=== PATIENT | female | born 1935 | race Caucasian/White ===

== ENCOUNTER 2018-06-26 08:57 | Emergency (ER) | payer MEDICARE ==
[~2018-06-26] VITALS: Ht 154.9 cm; Wt 45.5 kg
[2018-06-26 09:24] VITALS: Ht 154.9 cm; Wt 45.5 kg
[2018-06-26 09:55] LABS: BASOPHILS 0.5 % (0-2); EOSINOPHILS 2.6 % (0-7); HEMATOCRIT 34.5 % (36.0-48.0); HEMOGLOBIN 11.5 g/dL (12-16); IMMATURE GRANULOCYTES 0.3 % (0-5); LYMPHOCYTES 24.8 % (15-50); MCH 28.8 pg (26.0-34.0); MCHC 33.3 g/dL (31.0-37.0); MCV 86.3 fL (80.0-100.0); MEAN PLATELET VOLUME 9.1 fL (7.4-10.4); NEUTROPHILS 63.8 % (40-80); PLATELET COUNT 194 10x3/uL (130-400); RDW 13.1 % (11.5-14.5); WBC 3.9 10x3/uL (4.8-10.8)
[2018-06-26 10:05] LABS: APTT 30.1 SECONDS (22.8-39.4); INR 1.01 (0.85-1.17); PROTIME 12.9 SECONDS (11.6-15.0)
[2018-06-26 10:06] LABS: D-DIMER-QUANTITATIVE 0.49 ug/mLFEU (0.20-0.54)
[2018-06-26 10:09] LABS: ALBUMIN 3.1 g/dL (3.4-5.0); ANION GAP 11.8 mmol/L (8-16); BILIRUBIN - TOTAL 0.33 mg/dL (0.2-1.3); CALCIUM 8.5 mg/dL (8.5-10.1); CARBON DIOXIDE 26.5 mmol/L (21.0-32.0); CREATININE - SERUM 0.8 mg/dL (0.6-1.3); POTASSIUM - SERUM 4.3 mmol/L (3.5-5.1); PROTEIN - SERUM 6.3 g/dL (6.4-8.2)
[2018-06-26 12:25] LABS: CKMB 0.6 U/L (0.0-3.6); CREATINE KINASE 64 UL (21-215)
[2018-06-26 12:26] LABS: TROPONIN-I < 0.017 ng/mL (0.000-0.060)
[2018-06-26 16:10] LABS: APPEARANCE CLEAR (CLEAR); BILIRUBIN NEGATIVE (NEGATIVE); COLOR YELLOW (YELLOW); GLUCOSE NEGATIVE (NEGATIVE); KETONE NEGATIVE (NEGATIVE); NITRITE NEGATIVE (NEGATIVE); PROTEIN NEGATIVE (NEGATIVE); SPECIFIC GRAVITY 1.015 (1.005-1.020); UROBILINOGEN NORMAL (NORMAL)
[2018-06-26 16:11] LABS: RED CELLS - URINE 0-5 /hpf (0-5); WHITE CELLS - URINE 0-5 /hpf (0-5)
[2018-06-26 16:12] LABS: BACTERIA FEW /hpf (NONE SEEN); EPITHELIAL CELLS 0-5 /hpf (0-5)
[2018-06-26] MEDS ORDERED: KEFLEX500 MG PO (16:20)
[2018-06-26] MEDS ORDERED: MACROBID100 MG PO (16:20)
[2018-06-26 16:40] VITALS: BP 142/73
== END 2018-06-26 16:46 | disposition home or self-care (01) ==
LOC: EDBD 08:57 → D.ER 08:57
PROVIDERS: Family Medicine
DX: N39.0 Urinary tract infection, site not specified (principal); R00.1 Bradycardia, unspecified; R07.9 Chest pain, unspecified

== ENCOUNTER 2018-08-10 13:09 | Emergency (ER) | payer MEDICARE ==
[~2018-08-10] VITALS: Ht 154.9 cm; Wt 59.1 kg
[2018-08-10 13:09] VITALS: Ht 154.9 cm; Wt 59.1 kg
[~2018-08-10 13:09] MED LIST: KEFLEX500 MG PO; MACROBID100 MG PO
[2018-08-10] MEDS ORDERED: MELATONIN5 MG PO (13:17)
[2018-08-10] MEDS ORDERED: ZOFRAN4 MG PO (13:18)
[2018-08-10] MEDS ORDERED: REMERON15 MG PO (13:18)
[2018-08-10] MEDS ORDERED: TIROSINT88 MCG PO (13:18)
[2018-08-10] MEDS ORDERED: OMEPRAZOLE20 M1 (13:19)
[2018-08-10] MEDS ORDERED: BAYER CHEWABLE81 MG PO (13:19)
[2018-08-10] MEDS ORDERED: NORVASC2.5 MG (13:19)
[2018-08-10] MEDS ORDERED: FOLIC ACID0.8 MG (13:20)
[2018-08-10] MEDS ORDERED: ACETAMINOPHEN325 MG PO (13:20)
[2018-08-10] MEDS ORDERED: ZOLOFT100 MG (13:21)
[2018-08-10] MEDS ORDERED: CALCIUM 600 +1 EAC3 (13:21)
[2018-08-10] MEDS ORDERED: KLONOPIN0.5 MG (13:21)
[2018-08-10 13:59] LABS: BASOPHILS 0.4 % (0-2); EOSINOPHILS 2.6 % (0-7); HEMATOCRIT 34.5 % (36.0-48.0); HEMOGLOBIN 11.5 g/dL (12-16); IMMATURE GRANULOCYTES 0.2 % (0-5); LYMPHOCYTES 37.6 % (15-50); MCH 28.8 pg (26.0-34.0); MCHC 33.3 g/dL (31.0-37.0); MCV 86.5 fL (80.0-100.0); MONOCYTES 6.4 % (2-11); NEUTROPHILS 52.8 % (40-80); PLATELET COUNT 205 10x3/uL (130-400); RBC 3.99 10x6/uL (4.00-5.40); RDW 13.2 % (11.5-14.5); WBC 4.7 10x3/uL (4.8-10.8)
[2018-08-10 14:12] LABS: INR 1.07 (0.85-1.17); PROTIME 13.5 SECONDS (11.6-15.0)
[2018-08-10 14:13] LABS: D-DIMER-QUANTITATIVE 0.38 ug/mLFEU (0.20-0.54)
[2018-08-10 14:15] LABS: ALBUMIN 3.3 g/dL (3.4-5.0); ALKALINE PHOSPHATASE 48 U/L (46-116); ALT (SGPT) 17 U/L (10-68); BILIRUBIN - TOTAL 0.34 mg/dL (0.2-1.3); CALC OSMOLALITY 288 mosm/kg (275-300); CALCIUM 9.1 mg/dL (8.5-10.1); CARBON DIOXIDE 26.2 mmol/L (21.0-32.0); CHLORIDE - SERUM 108 mmol/L (98-107); CREATININE - SERUM 0.9 mg/dL (0.6-1.3); GLUCOSE 90 mg/dL (74-106); POTASSIUM - SERUM 4.2 mmol/L (3.5-5.1); PROTEIN - SERUM 6.3 g/dL (6.4-8.2); SODIUM 143 mmol/L (136-145); UREA NITROGEN 24 mg/dL (7-18); eGFR NON AFRICAN AMERICAN 63 mL/min (90-120)
[2018-08-10 14:26] LABS: CKMB 1.3 U/L (0.0-3.6); CREATINE KINASE 56 UL (21-215); MAGNESIUM - SERUM 2.3 mg/dL (1.8-2.4); TROPONIN-I < 0.017 ng/mL (0.000-0.060)
[2018-08-10 15:14] LABS: APPEARANCE CLEAR (CLEAR); BILIRUBIN NEGATIVE (NEGATIVE); COLOR YELLOW (YELLOW); GLUCOSE NEGATIVE (NEGATIVE); KETONE NEGATIVE (NEGATIVE); NITRITE NEGATIVE (NEGATIVE); PROTEIN NEGATIVE (NEGATIVE); SPECIFIC GRAVITY 1.015 (1.005-1.020); UROBILINOGEN NORMAL (NORMAL)
[2018-08-10 15:31] LABS: UDS - AMPHET NEGATIVE QUAL (NEGATIVE); UDS - BARB NEGATIVE QUAL (NEGATIVE); UDS - BENZO NEGATIVE QUAL (NEGATIVE); UDS - COCAINE NEGATIVE QUAL (NEGATIVE); UDS - OPIATE NEGATIVE QUAL (NEGATIVE); UDS - PCP NEGATIVE QUAL (NEGATIVE); UDS - THC NEGATIVE QUAL (NEGATIVE)
[2018-08-10 20:07] VITALS: BP 144/50
== END 2018-08-10 19:15 | disposition home or self-care (01) ==
LOC: D.ER 13:09
PROVIDERS: Family Medicine
DX: F03.90 Unspecified dementia, unspecified severity, without behavioral disturbance, psychotic disturbance, mood disturbance, and anxiety (principal); K21.9 Gastro-esophageal reflux disease without esophagitis; E07.9 Disorder of thyroid, unspecified; I10 Essential (primary) hypertension

== ENCOUNTER 2019-02-28 09:51 | Emergency (ER) | payer MEDICARE, BC ==
[~2019-02-28] VITALS: Ht 154.9 cm; Wt 47.7 kg
[~2019-02-28 09:51] MED LIST changes: +ACETAMINOPHEN325 MG PO; +BAYER CHEWABLE81 MG PO; +CALCIUM 600 +1 EAC3; +FOLIC ACID0.8 MG; +KLONOPIN0.5 MG; +MELATONIN5 MG PO; +NORVASC2.5 MG; +OMEPRAZOLE20 M1; +REMERON15 MG PO; +TIROSINT88 MCG PO; +ZOFRAN4 MG PO; +ZOLOFT100 MG
[2019-02-28 09:56] VITALS: Ht 154.9 cm; Wt 47.7 kg
[2019-02-28 11:39] LABS: BASOPHILS 0.4 % (0-2); EOSINOPHILS 1.9 % (0-7); HEMATOCRIT 36.9 % (36.0-48.0); IMMATURE GRANULOCYTES 0.2 % (0-5); LYMPHOCYTES 27.2 % (15-50); MCH 28.2 pg (26.0-34.0); MCHC 32.5 g/dL (31.0-37.0); MCV 86.8 fL (80.0-100.0); MEAN PLATELET VOLUME 8.9 fL (7.4-10.4); MONOCYTES 8.3 % (2-11); PLATELET COUNT 193 10x3/uL (130-400); RBC 4.25 10x6/uL (4.00-5.40); RDW 14.2 % (11.5-14.5); WBC 5.7 10x3/uL (4.8-10.8)
[2019-02-28 11:41] LABS: APPEARANCE CLEAR (CLEAR); BILIRUBIN NEGATIVE (NEGATIVE); COLOR YELLOW (YELLOW); GLUCOSE NEGATIVE (NEGATIVE); KETONE NEGATIVE (NEGATIVE); NITRITE NEGATIVE (NEGATIVE); PROTEIN NEGATIVE (NEGATIVE); UROBILINOGEN NORMAL (NORMAL)
[2019-02-28 12:09] LABS: ALBUMIN 3.6 g/dL (3.4-5.0); ANION GAP 11.7 mmol/L (8-16); BILIRUBIN - TOTAL 0.42 mg/dL (0.2-1.3); CALCIUM 8.9 mg/dL (8.5-10.1); CARBON DIOXIDE 28.3 mmol/L (21.0-32.0); CREATININE - SERUM 0.8 mg/dL (0.6-1.3); PROTEIN - SERUM 6.7 g/dL (6.4-8.2)
[2019-02-28 13:30] VITALS: BP 109/63
== END 2019-02-28 13:31 ==
LOC: D.ER 09:51
PROVIDERS: Emergency Medicine
DX: S80.211A Abrasion, right knee, initial encounter (principal); W18.30XA Fall on same level, unspecified, initial encounter; Y93.89 Activity, other specified; Y92.099 Unspecified place in other non-institutional residence as the place of occurrence of the external cause; S50.01XA Contusion of right elbow, initial encounter; S80.01XA Contusion of right knee, initial encounter; S51.011A Laceration without foreign body of right elbow, initial encounter

== ENCOUNTER 2020-01-21 15:37 | Emergency (ER) | payer MEDICARE, BC ==
[~2020-01-21] VITALS: Ht 154.9 cm; Wt 50.0 kg
[2020-01-21 15:39] VITALS: Ht 154.9 cm; Wt 50.0 kg
[2020-01-21 16:18] LABS: BASOPHILS 0.2 % (0-2); EOSINOPHILS 1.9 % (0-7); HEMATOCRIT 36.9 % (36.0-48.0); HEMOGLOBIN 11.6 g/dL (12-16); IMMATURE GRANULOCYTES 0.2 % (0-5); LYMPHOCYTES 37.5 % (15-50); MCH 29.2 pg (26.0-34.0); MCHC 31.4 g/dL (31.0-37.0); MCV 92.9 fL (80.0-100.0); MEAN PLATELET VOLUME 8.8 fL (7.4-10.4); MONOCYTES 7.1 % (2-11); NEUTROPHILS 53.1 % (40-80); PLATELET COUNT 191 10x3/uL (130-400); RBC 3.97 10x6/uL (4.00-5.40); RDW 13.1 % (11.5-14.5); WBC 5.4 10x3/uL (4.8-10.8)
[2020-01-21 16:34] LABS: ANION GAP 14.2 mmol/L (8-16); CALCIUM 8.7 mg/dL (8.5-10.1); CARBON DIOXIDE 26.6 mmol/L (21.0-32.0); POTASSIUM - SERUM 3.8 mmol/L (3.5-5.1)
[2020-01-21 16:40] LABS: ALBUMIN 3.5 g/dL (3.4-5.0); BILIRUBIN - TOTAL 0.3 mg/dL (0.2-1.3); PROTEIN - SERUM 6.3 g/dL (6.4-8.2)
[2020-01-21 18:00] LABS: BILIRUBIN NEGATIVE (NEGATIVE); GLUCOSE NEGATIVE (NEGATIVE); KETONE NEGATIVE (NEGATIVE); NITRITE NEGATIVE (NEGATIVE); SPECIFIC GRAVITY 1.015 (1.005-1.020); UROBILINOGEN NORMAL (NORMAL)
[2020-01-21 18:02] LABS: BACTERIA FEW /hpf (NEGATIVE); EPITHELIAL CELLS 0-5 /hpf (0-5); RED CELLS - URINE OCC /hpf (0-5); WHITE CELLS - URINE OCC /hpf (NEGATIVE)
[2020-01-21 19:10] VITALS: BP 130/60
== END 2020-01-21 19:10 ==
LOC: D.ER 15:37
PROVIDERS: Family Medicine
DX: N39.0 Urinary tract infection, site not specified (principal); W19.XXXA Unspecified fall, initial encounter; Y93.9 Activity, unspecified; Y92.9 Unspecified place or not applicable; M25.511 Pain in right shoulder; M54.2 Cervicalgia; M25.561 Pain in right knee; E07.9 Disorder of thyroid, unspecified; I10 Essential (primary) hypertension; Z86.73 Personal history of transient ischemic attack (TIA), and cerebral infarction without residual deficits; Z95.1 Presence of aortocoronary bypass graft; F03.90 Unspecified dementia, unspecified severity, without behavioral disturbance, psychotic disturbance, mood disturbance, and anxiety; K21.9 Gastro-esophageal reflux disease without esophagitis

== ENCOUNTER 2020-03-09 08:15 | Inpatient (IN) | payer MEDICARE, BC ==
[2020-03-09] VITALS (18 sets, daily range): BP systolic 92–177; BP diastolic 55–95; BMI 21.5
[~2020-03-09] VITALS: Ht 154.9 cm; Wt 53.1 kg
--- NOTE | ~2020-03-09 | OP ---
PATIENT NAME: CECI HANNA MEDICAL RECORD: [id number] :37 LOCATION:[facility].CV02 ADMISSION DATE:03/09/20 SURGEON: JESSI HEDRICK MD DATE OF OPERATION: 03/11/2020 PREOPERATIVE DIAGNOSIS: Right frontal subacute subdural hematoma. POSTOPERATIVE DIAGNOSIS: Right frontal subacute subdural hematoma. PROCEDURE: Right frontal vivienne holes for evacuation of subdural hematoma. DESCRIPTION OF TECHNIQUE: After induction of general endotracheal anesthesia, the patient was positioned supine on the operating table. The scalp was prepped and draped in usual sterile fashion. After infiltration of 1:100,000 epinephrine and 1% lidocaine, a scalp incision was carried out over the right supratemporal line with the zygoma. A Midas Neftali drill with a craniotome was used to create a vivienne hole. The dura was opened in a cruciate manner with bipolar cautery and a #11 blade. There was brisk egress of subacute subdural hematoma fluid from the subdural space. This was irrigated with Luke warm saline irrigant solution until it was crystal clear. Following this, the galea was closed with 2-0 Vicryl suture. The skin was closed with ruba. A sterile dressing was applied to the wound. The patient was awakened in good condition and taken to recovery. All counts were reported as correct. Estimated blood loss was minimal. TRANSINT:[id number] Voice Confirmation ID: [id number] DOCUMENT ID: [id number] JESSI HEDRICK MD CC: [id number] DICTATION DATE: 03/15/20904 SPORTS BOOK BOARD ATTENDANT: 03/15/20 1539 DIS IN 03/14/20 [place] [id number] [place] [id number]
[~2020-03-09 08:15] MED LIST changes: -KLONOPIN0.5 MG; +KLONOPIN0.5 MG PO
--- NOTE | 2020-03-09 08:20 | NUR ---
TRAUMA BAND #[id number] IN PLACE PER EMS
--- NOTE | 2020-03-09 09:29 | NUR ---
ABRASION NOTED TO ELFT ELBOW AND RIGHT KNEE. CLEANED WITH 4X4 AND BETADINE. DAUGHTER AT BEDSIDE AND SPOKE WITH DR. CID
[2020-03-09 09:51] LABS: BASOPHILS 0.4 % (0-2); EOSINOPHILS 1.6 % (0-7); HEMATOCRIT 37.7 % (36.0-48.0); HEMOGLOBIN 12.1 g/dL (12-16); IMMATURE GRANULOCYTES 0.2 % (0-5); LYMPHOCYTES 25.7 % (15-50); MCH 29.3 pg (26.0-34.0); MCHC 32.1 g/dL (31.0-37.0); MCV 91.3 fL (80.0-100.0); MEAN PLATELET VOLUME 8.8 fL (7.4-10.4); MONOCYTES 8.8 % (2-11); NEUTROPHILS 63.3 % (40-80); PLATELET COUNT 210 10x3/uL (130-400); RBC 4.13 10x6/uL (4.00-5.40); WBC 5.7 10x3/uL (4.8-10.8)
--- NOTE | 2020-03-09 10:00 | NUR ---
REPORT RECIEVED. ASSESSMENT COMPLETE PER FLOW SHEET. VSS. FAMILY AT BEDSIDE. 1030 DR HEDRICK AT BEDSIDE. SPOKE WITH FAMILY AT GREAT LENGTH. PLAN FOR SURGERY ON SUNDAY.
[2020-03-09 10:05] LABS: ANION GAP 14.4 mmol/L (8-16); CALCIUM 9.2 mg/dL (8.5-10.1); POTASSIUM - SERUM 4.4 mmol/L (3.5-5.1)
[2020-03-09] MEDS ORDERED: CALCIUM 600 +1 EAC3 PO (10:06)
[2020-03-09 10:07] LABS: APTT 30.1 SECONDS (22.8-39.4); INR 1.02 (0.85-1.17); PROTIME 13.4 SECONDS (11.6-15.0)
[2020-03-09] MEDS ORDERED: HYDROCODON-ACE1 EAC7 PO (10:07)
[2020-03-09] MEDS ORDERED: ZOFRAN ODT4 MG/UDTAB PO (10:07)
[2020-03-09 10:11] LABS: ALBUMIN 3.8 g/dL (3.4-5.0); BILIRUBIN - TOTAL 0.34 mg/dL (0.2-1.3); PROTEIN - SERUM 6.6 g/dL (6.4-8.2)
[2020-03-09 10:20] LABS: BACTERIA FEW /hpf (NEGATIVE); BILIRUBIN NEGATIVE (NEGATIVE); EPITHELIAL CELLS RARE /hpf (0-5); GLUCOSE NEGATIVE (NEGATIVE); KETONE NEGATIVE (NEGATIVE); NITRITE NEGATIVE (NEGATIVE); RED CELLS - URINE OCC /hpf (0-5); UROBILINOGEN NORMAL (NORMAL); WHITE CELLS - URINE RARE /hpf (NEGATIVE)
--- NOTE | 2020-03-09 12:00 | NUR ---
PT CONFUSED EQUAL STITCHER HAND X2 UPPER EXTREEMTIES. DAUGHTER AT BEDSIDE. NO NEW CHANGES
--- NOTE | 2020-03-09 14:10 | NUR ---
NO NEW CHANGES PT ERSTING COMFORTABLY
--- NOTE | 2020-03-09 15:07 | NUR ---
REASSESSMENT COMPLETE PER FLOW SHEET. VSS. PT RESTING COMFORTABYL WILL CONTINUE TO MONITOR
--- NOTE | 2020-03-09 19:00 | NUR ---
REPORT RECEIVED. PT DISORIENTED TO TIME, PLACE, SITUATION, AND SELF. PT DEMONSTRATING WORD SALAD. COTTON OPENER EQUAL, PT ON ROOM AIR. NO ACUTE DISTRESS NOTED. ASSESSMENT COMPLETE, SEE FLOWSHEET. PIV IN RT AC TO SL, SEE IV FLOWSHEET. WILL CONTINUE TO MONITOR.
--- NOTE | 2020-03-09 20:48 | NUR ---
PT FAMILY MEMBER AT BEDSIDE. WILL CONTINUE TO MONITOR.
--- NOTE | 2020-03-09 23:00 | NUR ---
PT CONFUSED, REASSESSMENT COMPLETED.
[2020-03-10] VITALS (22 sets, daily range): BP systolic 104–165; BP diastolic 39–99; Ht 154.9 cm; Wt 53.1 kg
--- NOTE | 2020-03-10 01:00 | NUR ---
PT ATTEMPTING TO GET OUT OF BED, REORIENTED NEEDED.
--- NOTE | 2020-03-10 03:00 | NUR ---
REASSESSMENT COMPLETED, SEE FLOWSHEET.
[2020-03-10 03:45] LABS: BASOPHILS 0 % (0-2); EOSINOPHILS 0 % (0-7); HEMATOCRIT 37.7 % (36.0-48.0); HEMOGLOBIN 12.2 g/dL (12-16); IMMATURE GRANULOCYTES 0.3 % (0-5); LYMPHOCYTES 10.9 % (15-50); MCHC 32.4 g/dL (31.0-37.0); MCV 89.5 fL (80.0-100.0); MEAN PLATELET VOLUME 8.9 fL (7.4-10.4); MONOCYTES 2.4 % (2-11); NEUTROPHILS 86.4 % (40-80); PLATELET COUNT 248 10x3/uL (130-400); RBC 4.21 10x6/uL (4.00-5.40); WBC 7.1 10x3/uL (4.8-10.8)
[2020-03-10 04:03] LABS: ALBUMIN 3.7 g/dL (3.4-5.0); ANION GAP 15.3 mmol/L (8-16); BILIRUBIN - TOTAL 0.36 mg/dL (0.2-1.3); CALCIUM 9.1 mg/dL (8.5-10.1); CARBON DIOXIDE 21.8 mmol/L (21.0-32.0); POTASSIUM - SERUM 4.1 mmol/L (3.5-5.1); PROTEIN - SERUM 7.2 g/dL (6.4-8.2)
--- NOTE | 2020-03-10 05:00 | NUR ---
PT RESTING IN BED, NO ACUTE DISTRESS NOTED.
--- NOTE | 2020-03-10 07:01 | NUR ---
PT REPORT RECEIVED FROM SHEET METAL SUPERVISOR NURSE. NO ACUTE SIGNS OF DISTRES NOTED. PT MOVED FROM ICU TO CVICU. TOLERATED WELL. WILL CONTINUE TO MONITOR
--- NOTE | 2020-03-10 11:01 | NUR ---
PT HAD LARGE BM. CLEANED UP AND CHANGED LINENS. REASSESSMENT COMPLETED. WILL CONTNIUE TO MONITOR
--- NOTE | 2020-03-10 11:59 | NUR ---
LAB IN ROOM DRAWING BLOOD FROM PT. WILL CONTINUE TO MONITOR
--- NOTE | 2020-03-10 13:30 | NUR ---
PT RESTING IN BED. NO COMPLAINTS NOTED AT THIS TIME. WILL CONTINUE TO MONITOR. PT STILL CONFUSED AND DISORIENTATED.
[2020-03-10 13:58] LABS: BASOPHILS 0 % (0-2); EOSINOPHILS 0 % (0-7); HEMATOCRIT 37.9 % (36.0-48.0); HEMOGLOBIN 12.4 g/dL (12-16); IMMATURE GRANULOCYTES 0.4 % (0-5); LYMPHOCYTES 6.2 % (15-50); MCH 29.5 pg (26.0-34.0); MCHC 32.7 g/dL (31.0-37.0); MEAN PLATELET VOLUME 8.8 fL (7.4-10.4); MONOCYTES 4.3 % (2-11); NEUTROPHILS 89.1 % (40-80); PLATELET COUNT 265 10x3/uL (130-400); RBC 4.21 10x6/uL (4.00-5.40); RDW 13.2 % (11.5-14.5)
[2020-03-10 14:05] LABS: ANION GAP 15.5 mmol/L (8-16); CALCIUM 9.2 mg/dL (8.5-10.1); CARBON DIOXIDE 23.7 mmol/L (21.0-32.0); POTASSIUM - SERUM 4.2 mmol/L (3.5-5.1)
[2020-03-10 14:06] LABS: WBC 14.3 10x3/uL (4.8-10.8)
--- NOTE | 2020-03-10 16:00 | NUR ---
PT RESTING IN BED. FAMILY AT BEDSIDE. CONFUSION STILL PRESENT. WILL CONTINUE TO MONITOR
--- NOTE | 2020-03-10 18:00 | NUR ---
PT RESTING IN BED. EATING IMAGINARY FOOD. STILL CONFUSED AND DISORIENTED. WILL CONTINUE TO MONITOR
--- NOTE | 2020-03-10 19:45 | NUR ---
PT RECEIVED WITH EYES OPEN, RESTLESS. SPEECH CLEAR. DENIES PAIN AT THIS TIME. CONFUSION NOTED. WILL CONTINUE TO OBSERVE.
--- NOTE | 2020-03-10 20:05 | NUR ---
FAMILY AT BEDSIDE. UPDATE GIVEN. PT CALMING DOWN WITH FAMILY.
--- NOTE | 2020-03-10 23:57 | NUR ---
PT RESTING WITH EYES CLOSED AND CHEST RISING. SOME RESTLESS NOTED, BUT MOSTLY CALM, FAMILY STATED THAT SHE HAS RESTLESS LEGS. WILL CONTINUE TO OBSERVE.
[2020-03-11] VITALS (18 sets, daily range): BP systolic 113–185; BP diastolic 44–87
--- NOTE | 2020-03-11 01:05 | NUR ---
PT RESTING WITH EYES CLOSED AND CHEST RISING. PT MOVING ARMS FREQUENTLY, SPO2 ALARM SOUNDING, UNABLE TO GET A GOOD WAVE FORM, SENSOR CHANGED WITH GOOD WAVE FORM AND 97% ON ROOM AIR. WILL CONTINUE TO OBSERVE.
--- NOTE | 2020-03-11 03:15 | NUR ---
PT CONFUSED AND UNABLE TO TAKE TO IMAGING FOR 2 VIEW. WITH NURSE ASSIST ABLE TO OBTAIN WITH PORTABLE XRAY WITH PT IN BED. TOLERATED WELL. RESTING CALMLY AT THIS TIIME. WILL CONTINUE TO OBSERVE.
--- NOTE | 2020-03-11 06:31 | NUR ---
PT REFUSED BATH CLINCHING BLANKETS AND ROBE AND NOT LETTING GO.
--- NOTE | 2020-03-11 07:00 | NUR ---
PT REPORT RECEIVED FROM DIRECTOR OF PROFESSIONAL SERVICES NURSE. NO ACUTE SIGNS OF DISTRESS NOTED. PT RESTING IN BED. SHIFT ASSESSMENT COMPLETED. WILL CONTINUE TO MONITOR
--- NOTE | 2020-03-11 10:04 | NUR ---
NEW PIV STARTED RT HAND. PT TOLERATED WELL. OLD PIV REMOVED BY PT. WILL CONTINUE TO MONITOR
--- NOTE | 2020-03-11 10:33 | NUR ---
OR CREW IN ROOM. TAKING PT TO SURGERY.
--- NOTE | 2020-03-11 12:13 | NUR ---
1211 - CONSULTED WITH DR HARDIN FOR SYSTOLIC PRESSURE OF 189. ORDERS RECEIVED AND IMPLEMENTED.
--- NOTE | 2020-03-11 13:00 | NUR ---
PT BACK IN CVICU ROOM. HOOKED UP TO CV MONITOR. VSS. PT SLEEPING CURRENTLY. SHALOM DRAIN NOTED ON RIGHT FOREHEAD. BLOODY DRAINAGE IN BULB. WILL CONTINUE TO MONITOR
--- NOTE | 2020-03-11 15:00 | NUR ---
PT RESTING IN BED. REASSESSMENT COMPLETED. NO ACUTE SIGNS OF DISTRESS NOTED. PT AROUSES EASILY. WILL CONTINUE TO MONITOR
--- NOTE | 2020-03-11 16:29 | NUR ---
PT RESTING IN BED. STARTING TO BECOME MORE ALERT. IS ABLE TO FOLLOW SIMPLE COMMANDS, AND STATE HER NAME.
--- NOTE | 2020-03-11 17:50 | NUR ---
DR HEDRICK IN ROOM. UPDATE GIVEN. NO NEW ORDERS RECEIVED. WILL CONTINEU TO MONITOR
--- NOTE | 2020-03-11 22:10 | NUR ---
RECIEVED REPORT FROM DAY SHIFT, VS STABLE, FAMILY AT BEDSIDE, NO DISTRESS NOTED.
--- NOTE | 2020-03-11 23:07 | NUR ---
PATIENT RESTING IN BED EYES CLOSED, NO DISTRESS NOTED, WILL CONTINUE TO MONITOR.
[2020-03-12] VITALS (18 sets, daily range): BP systolic 126–169; BP diastolic 40–79
--- NOTE | 2020-03-12 00:59 | NUR ---
PATIENT PULLED OUT HER IV FROM HER RIGHT HAND.
--- NOTE | 2020-03-12 01:49 | NUR ---
PATIENT GIVEN KLONOPIN 0.5 MG TABLET FOR ANXIETY .
--- NOTE | 2020-03-12 02:26 | NUR ---
PATIENT REPOSITIONED IN BED, RESTING QUIETLY EYES CLOSED, NO DISTRESS NOTED, WILL CONTINUE TO MONITOR.
--- NOTE | 2020-03-12 04:43 | NUR ---
IV STARTED RIGHT FOREARM, 20 G , SALINE LOCKED, PATIENT CALM AND COOPERATIVE. CHAUDHARI OUTPUT 200 ML SHALOM DRAIN 30 ML.
--- NOTE | 2020-03-12 05:51 | NUR ---
PATIENT RESTING IN BEDEYES CLOSED, NO DISTRESS NOTED, WILL CONTINUE TO MONITOR.
--- NOTE | 2020-03-12 09:42 | NUR ---
ST HERE, PT DID EAT, DIET ORDER PER RECOMENDATIONS. PT CRYING IN PAIN THIS AM. PAIN MEDS CRUSHED AND GIVEN.
--- NOTE | 2020-03-12 09:44 | NUR ---
Nutrition Follow-up: S/p vivienne valadez. NPO per BOTTLE HOUSE CLEANERS SUPERVISOR. Wt: 114# (03/10) No new labs Meds reviewed -Rec ADAT when ok with BOTTLE HOUSE CLEANERS SUPERVISOR; if unable to advance diet, rec nutrition support. -Monitor wt. -RD following.
--- NOTE | 2020-03-12 12:20 | NUR ---
PT WITH VISITOR AT BS.
--- NOTE | 2020-03-12 13:05 | NUR ---
FAMILY MEMBER FEEDING PT. PT WITH NO PROBLEMS WITH MECH SOFT THIN LIQ RECOMENDED BY
--- NOTE | 2020-03-12 15:51 | NUR ---
PT WITH VISITOR AT BS. VISITING, CONFUSED. CHEST PAIN COORDINATOR HALLUCINATIONS AT TIMES. SEEING PEOPLE IN ROOM. PT C/O ABD PAIN. PO PAIN MEDS GIVEN.
--- NOTE | 2020-03-12 18:35 | MORECARE ---
CASE MANAGEMENT DISCHARGE SUMMARY PATIENT: CECI HANNA UNIT: [id number] ADM DATE: 03/09/20 AGE: 84 : 36 SEX: F ROOM/BED: [facility] AUTHOR: HAM ARIAS PHYSICIAN: REFERRING PHYSICIAN: JESSI BARNHART MD DATE OF SERVICE: 03/12/20 Discharge Plan Patient Name: CECI HANNA [facility] : 1935 Planned Disposition: Anticipated Discharge Date: Discharge Date: Expected LOS: Initial Reviewer: [email or web address] Initial Review Date: 03/09/2020 Generated: 03/12/20 7:35 pm Patient Name: CECI HANNA Page [phone] at 1835 All edits/amendments must be made on the electronic document DICTATION DATE: 03/12/201834 IVORY CARVER: EMERY 03/12/201834 RPT#: [id number] DC DATE: STATUS: ADM IN [facility] [address] [place] [address] END OF REPORT
--- NOTE | 2020-03-12 18:43 | MORECARE ---
CASE MANAGEMENT DISCHARGE SUMMARY PATIENT: CECI HANNA UNIT: [id number] ADM DATE: 03/09/20 AGE: 84 : 36 SEX: F ROOM/BED: D[facility] AUTHOR: HUGO,DOC PHYSICIAN: REFERRING PHYSICIAN: JESSI BARNHART MD DATE OF SERVICE: 03/12/20 Discharge Plan Patient Name: CECI HANNA Facility: [facility]:[place] : 1935 Planned Disposition: Anticipated Discharge Date: Discharge Date: Expected LOS: Initial Reviewer: [email or web address] Initial Review Date: 03/09/2020 Generated: 03/12/20 7:43 pm Comments DCP- Discharge Planning Updated by [id number]: Simran Hernandez on 03/12/20 5:[address] Patient Name: CECI HNANA Admission Status: ER Accout number: [id number] Admission Date: 03-09-2020 : 1935 Admission Diagnosis:TRAUM SUBDR HEM W LOC OF UNSP DURATION, INIT Attending: JESSI BARNHART Current LOS: 3 Anticipated DC Date: Planned Disposition: Primary Insurance: MEDICARE A & B Discharge Planning Comments: PATIENT IS A RESIDENT AT [facility] AND PLANS TO RETURN THERE UPON DISCHARGE. CM WILL CONTINUE TO FOLLOW AND ASSIST NEEDED WITH DISCHARGE PLANNING / NEEDS. Television Reporter: Simran Hernandez DCPIA - Discharge Planning Initial Assessment Updated by [email or web address]: Simran Hernandez on 03/12/20 6:37 pm * Is the patient Alert and Oriented? Yes * PCP PHILLIP * Pharmacy [facility] * Preadmission Environment Memory Care * Facility Name [facility] * ADLs Partial Dependent * Partial ADLs (Assistance needed) Medication Management * Equipment None * List name and contact numbers for known caregivers / representatives who currently or will assist patient after discharge: ELANA CAN - [facility]- [phone] * Verbal permission to speak to the caregivers and representatives has been obtained from the patient. Yes * Community resources currently utilized None * Additional services required to return to the preadmission environment? No * Can the patient safely return to the preadmission environment? Yes * Has this patient been hospitalized within the prior 30 days at any hospital? No Last DP export: 03/12/20 5:35 p Patient Name: CECI HANNA Page [id number] at 1843 All edits/amendments must be made on the electronic document DICTATION DATE: 03/12/201842 BUS ANALYST: EMERY 03/12/201842 RPT#: [id number] DC DATE: STATUS: ADM IN [facility] [address] [place] [address] END OF REPORT
--- NOTE | 2020-03-12 18:50 | MORECARE ---
CASE MANAGEMENT DISCHARGE SUMMARY PATIENT: CECI HANNA UNIT: [id number] ADM DATE: 03/09/20 AGE: 84 : 36 SEX: F [facility] AUTHOR: HUGO,DOC PHYSICIAN: REFERRING PHYSICIAN: JESSI BARNHART MD DATE OF SERVICE: 03/12/20 Discharge Plan Patient Name: CECI HANNA Facility: [facility]:[place] : 1935 Planned Disposition: Anticipated Discharge Date: Discharge Date: Expected LOS: Initial Reviewer: [email or web address] Initial Review Date: 03/09/2020 Generated: 03/12/20 7:49 pm Comments DCP- Discharge Planning Updated by [id number]: Simran Hernandez on 03/12/20 5:[address] Patient Name: CECI HANNA Admission Status: ER Accout number: [id number] Admission Date: 03-09-2020 : 1935 Admission Diagnosis:TRAUM SUBDR HEM W LOC OF UNSP DURATION, INIT Attending: JESSI BARNHART Current LOS: 3 Anticipated DC Date: Planned Disposition: Primary Insurance: MEDICARE A & B Discharge Planning Comments: PATIENT IS A RESIDENT AT [facility] AND PLANS TO RETURN THERE UPON DISCHARGE. CM WILL CONTINUE TO FOLLOW AND ASSIST NEEDED WITH DISCHARGE PLANNING / NEEDS. Reimbursement Spec: Simran Hernandez DCPIA - Discharge Planning Initial Assessment Updated by [email or web address]: Simran Hernandez on 03/12/20 6:37 pm * Is the patient Alert and Oriented? Yes * PCP PHILLIP * Pharmacy [facility] * Preadmission Environment Memory Care * Facility Name [facility] * ADLs Partial Dependent * Partial ADLs (Assistance needed) Medication Management * Equipment None * List name and contact numbers for known caregivers / representatives who currently or will assist patient after discharge: ELANA CAN - [facility]- [phone] * Verbal permission to speak to the caregivers and representatives has been obtained from the patient. Yes * Community resources currently utilized None * Additional services required to return to the preadmission environment? No * Can the patient safely return to the preadmission environment? Yes * Has this patient been hospitalized within the prior 30 days at any hospital? No Last DP export: 03/12/20 5:43 p Patient Name: CECI HANNA Page [phone] at 1850 All edits/amendments must be made on the electronic document DICTATION DATE: 03/12/201848 ROLL OUT MANAGER: EMERY 03/12/201848 RPT#: [id number] DC DATE: STATUS: ADM IN [facility] [address] [place] [address] END OF REPORT
--- NOTE | 2020-03-12 19:00 | NUR ---
PT IS SITTING UP IN BED A&OX1. SHE DOES NOT KNOW WHERE SHE IS, TIME, OR SITUATION. HER DAUGHTER B IS AT BEDSIDE AND SEEMS TO HELP HER WITH HER ANXIETY. HER VSS. WILL PER FORM FULL ASSESSMENT AND DOC IN FLOWSHEET. ALFREDOELY CATHETOR IS OBSREVED BELOW BLADDER AND DRAINING. SHALOM DRAIN IS CDI TO RIGHT SIDE OF HEAD. BED IS LOW,SIDE RAISLX2,CALL LIGHT WITHIN REC. WILL CONTINUE TO MONITOR. BED ALARM IS ON
--- NOTE | 2020-03-12 21:15 | NUR ---
PT IS RESTLESS IN BED YELLING"PLEASE GOD, PLEASE HELP ME LORD". WHEN I APPROACH PT AND ASK IF SHE IS HURTING SHE JUST SAYS"I NEED B". B IS HER DAUGHTER AND WAS HERE WITH HER TODAY BUT WENT HOME AROUND 2029. I JUST CALLED B HER DAUGHTER TO FRANCOISE KNOW OF HER MOTHERS ANXIETY SINCE SHE LEFT. SHE VOICED"THANK YOU SO MUCH FOR LETTING ME KNOW, I AM GOING TO GET SOMETHING TO EAT AND THEN COME BACK UP HERE". PT VITAL SIGNS ARE STABLE. WHEN TRYING TO REORIENT HER I HAVE NO SUCCESS. I TRY TO REPOSITON FOR COMFORT AND SHE CONTIUES TO CRY OUT. I WILL CONTINNUE TO TRY TO COMFORT. HER BED IS LOW,SIDE RASILX2,CALL LIHGHT WITHIN REACH. BED ALARM IS ON
--- NOTE | 2020-03-12 22:42 | NUR ---
PT IS RESTING IN BED WITH EYES CLOSED RESTING QUIETLY. BED IS LOW,SIDE RAISLX2,CALL LIGHT WITHIN REACH. BED ALARM IS ON
[2020-03-13] VITALS (23 sets, daily range): BP systolic 131–162; BP diastolic 51–84
--- NOTE | 2020-03-13 00:27 | NUR ---
pt is resting in bed with eyes closed. vss. bed is low,side rasixl2,call light within reach.will conitnue to monitor
--- NOTE | 2020-03-13 02:01 | NUR ---
pt is resting with eyes closed. vss. bed is low,side raislx2,call light wtihin reach. will conitnue to monitor
--- NOTE | 2020-03-13 05:45 | NUR ---
PT IS RESTING IN BED. VSS. PROVIDED BED BATH AT THIS TIME WITH LINEN CHANGE. USED HCG TECH INTERN. PROVIDED CHAUDHARI CATHETOR CARE. PT TOLERATED WELL. REPOSITIONED FOR COMFORT. SHE VOICES NO C/O OF DISCOMFORT. BED IS LOW,SIDE RAISLX2,CALL LIGTH WITHIN REACH. BED ALARM IS ON
[2020-03-13 05:57] LABS: BASOPHILS 0 % (0-2); EOSINOPHILS 0 % (0-7); HEMATOCRIT 35.9 % (36.0-48.0); HEMOGLOBIN 11.4 g/dL (12-16); IMMATURE GRANULOCYTES 0.4 % (0-5); LYMPHOCYTES 8.4 % (15-50); MCH 28.6 pg (26.0-34.0); MCHC 31.8 g/dL (31.0-37.0); MCV 90.2 fL (80.0-100.0); MEAN PLATELET VOLUME 8.8 fL (7.4-10.4); MONOCYTES 6.4 % (2-11); NEUTROPHILS 84.8 % (40-80); PLATELET COUNT 238 10x3/uL (130-400); RBC 3.98 10x6/uL (4.00-5.40); RDW 13.1 % (11.5-14.5); WBC 8.1 10x3/uL (4.8-10.8)
--- NOTE | 2020-03-13 06:35 | NUR ---
PT IS RESTING IN BED WITH EYES CLOSED. VSS. BED IS LOW,SIDE RAISLX2,[facility]. WILL CONINTUE TO [place]
[2020-03-13 06:48] LABS: ANION GAP 13.5 mmol/L (8-16); CALCIUM 8.4 mg/dL (8.5-10.1); CARBON DIOXIDE 21.6 mmol/L (21.0-32.0); CREATININE - SERUM 0.8 mg/dL (0.6-1.3); POTASSIUM - SERUM 4.1 mmol/L (3.5-5.1)
--- NOTE | 2020-03-13 08:05 | NUR ---
PT RESTING QUIETLY. VSS, SB 50 ON CM.
--- NOTE | 2020-03-13 09:19 | NUR ---
PT RESTING QUIETLY. VSS.
--- NOTE | 2020-03-13 12:39 | NUR ---
PT AWAKE AND IS EATING LUNCH WITH THIS RN FEEDING.
--- NOTE | 2020-03-13 14:31 | NUR ---
PTS DAUGHTER N LAW IN ROOM. CM TALKING TO HER AND PT SAT PT ON SIDE OF BED. PT DID NOT OFFER TO HOLD SELF IN SITTING POSITION. ASSISTED BACK TO BED AND POSITIONED FOR COMFORT.
--- NOTE | 2020-03-13 15:55 | MORECARE ---
CASE MANAGEMENT DISCHARGE SUMMARY PATIENT: CECI HANNA UNIT: [id number] ADM DATE: 03/09/20 AGE: 84 : 36 SEX: F ROOM/BED: D[facility] AUTHOR: HUGO,DOC PHYSICIAN: REFERRING PHYSICIAN: JESSI BARNHART MD DATE OF SERVICE: 03/13/20 Discharge Plan Patient Name: CECI HANNA Facility: [facility]:[place] : 1935 Planned Disposition: Inpatient Rehab Anticipated Discharge Date: Discharge Date: Expected LOS: Initial Reviewer: [email or web address] Initial Review Date: 03/09/2020 Generated: 03/13/20 4:54 pm Comments DCP- Discharge Planning Updated by [id number]: Simran Hernandez on 03/12/20 5:[address] Patient Name: CECI HANNA Admission Status: ER Accout number: [id number] Admission Date: 03-09-2020 : 1935 Admission Diagnosis:TRAUM SUBDR HEM W LOC OF UNSP DURATION, INIT Attending: JESSI BARNHART Current LOS: 3 Anticipated DC Date: Planned Disposition: Primary Insurance: MEDICARE A & B Discharge Planning Comments: PATIENT IS A RESIDENT AT [facility] AND PLANS TO RETURN THERE UPON DISCHARGE. CM WILL CONTINUE TO FOLLOW AND ASSIST NEEDED WITH DISCHARGE PLANNING / NEEDS. [employer] Orthodontist: Simran Hernandez DCPIA - Discharge Planning Initial Assessment Updated by [id number]: Simran Hernandez on 03/12/20 6:37 pm * Is the patient Alert and Oriented? Yes * PCP PHILLIP * Pharmacy [facility] * Preadmission Environment Memory Care * Facility Name [facility] * ADLs Partial Dependent * Partial ADLs (Assistance needed) Medication Management * Equipment None * List name and contact numbers for known caregivers / representatives who currently or will assist patient after discharge: ELANA CAN - daughter- [phone] * Verbal permission to speak to the caregivers and representatives has been obtained from the patient. Yes * Community resources currently utilized None * Additional services required to return to the preadmission environment? No * Can the patient safely return to the preadmission environment? Yes * Has this patient been hospitalized within the prior 30 days at any hospital? No Last DP export: 03/12/20 5:49 p Patient Name: CECI HANNA Page [phone] at 1555 All edits/amendments must be made on the electronic document DICTATION DATE: 03/13/201554 BINDER LOCKSTITCH: EMERY 03/13/201554 RPT#: [id number] DC DATE: STATUS: ADM IN [facility] [address] [place] [address] END OF REPORT
--- NOTE | 2020-03-13 16:01 | MORECARE ---
CASE MANAGEMENT DISCHARGE SUMMARY PATIENT: CECI HANNA UNIT: [id number] ADM DATE: 03/09/20 AGE: 84 : 36 SEX: F ROOM/BED: D.[facility] AUTHOR: HUGO,DOC PHYSICIAN: REFERRING PHYSICIAN: JESSI BARNHART MD DATE OF SERVICE: 03/13/20 Discharge Plan Patient Name: CECI HANNA Facility: [facility]:[place] : 1935 Planned Disposition: Inpatient Rehab Anticipated Discharge Date: Discharge Date: Expected LOS: Initial Reviewer: [email or web address] Initial Review Date: 03/09/2020 Generated: 03/13/20 5:01 pm Comments DCP- Discharge Planning Updated by [email or web address]: Azul Moeller on 03/13/20 2:[address] MET WITH PATIENT AND DAUGHTER IN LAW (ELANA AGUIRRES [phone]) I SPOKE WITH HER AT LENGTH ABOUT PLAN OF CARE AND WHAT HER PRIOR LEVEL OF FUNCTION. ELANA STATES THAT SHE WAS ABLE TO AMBULATE WITH HER WALKER, BUT HAS BEEN FALLING ALOT RECENTLY. SHE [facility] AND DANCE BEFORE COVID HIT. SHE LIVES IN HER OWN ASSISTED APARTMENT AT [place] AND SHE HAS BEEN ON HOSPICE WITH [facility] FOR THE PAST 2 YEARS. ELANA WOULD LIKE HER TO TRY REHAB AND DR HEDRICK THINKS THAT WOULD BE A GOOD FOR HER IF SHE CAN TOLERATE IT AND FOLLOW DIRECTIONS. MARGARITO SIGNED AND IMM ALSO SIGNED AND EXPLAINED TO ELANA (YASMINE). CM WILL CONTINUE TO FOLLOW AND ASSIST WITH DC PLANNING. DCP- Discharge Planning Updated by [id number]: Simran Hernandez on 03/12/20 5:[address] Patient Name: CECI HANNA Admission Status: ER Accout number: [id number] Admission Date: 03-09-2020 : 1935 Admission Diagnosis:TRAUM SUBDR HEM W LOC OF UNSP DURATION, INIT Attending: JESSI BARNHART Current LOS: 3 Anticipated DC Date: Planned Disposition: Primary Insurance: MEDICARE A & B Discharge Planning Comments: PATIENT IS A RESIDENT AT [facility] AND PLANS TO RETURN THERE UPON DISCHARGE. CM WILL CONTINUE TO FOLLOW AND ASSIST NEEDED WITH DISCHARGE PLANNING / NEEDS. Security Attendant: Simran Hernandez DCPIA - Discharge Planning Initial Assessment Updated by [id number]: Simran Hernandez on 03/12/20 6:37 pm * Is the patient Alert and Oriented? Yes * PCP PHILLIP * Pharmacy [facility] * Preadmission Environment Memory Care * Facility Name [facility] * ADLs Partial Dependent * Partial ADLs (Assistance needed) Medication Management * Equipment None * List name and contact numbers for known caregivers / representatives who currently or will assist patient after discharge: ELANA CAN - [facility]- [phone] * Verbal permission to speak to the caregivers and representatives has been obtained from the patient. Yes * Community resources currently utilized None * Additional services required to return to the preadmission environment? No * Can the patient safely return to the preadmission environment? Yes * Has this patient been hospitalized within the prior 30 days at any hospital? No Coverage Notice Reviewer: [id number] Bjorn Moeller Notice Issued Date-Time: 03/13/2020 13:45 Notice Type: Patient Choice Letter Notice Delivered To: Other Relationship to Patient: Power of Control Tower Radio Operator Manager Wealth Management Name: ELANA CAN Delivery Method: HAND - Hand Delivered Dianna Days: Prior Verbal Notification: Recipient Understood Notice: Yes Recipient Signature: Yes Med Rec Note Co-signed by Attending: Coverage Notice Comment: [facility] INPATIENT REHAB Last DP export: 03/12/20 5:49 p Patient Name: CECI HANNA Page [id number] at 1601 All edits/amendments must be made on the electronic document DICTATION DATE: 03/13/20 160 MOTORBOAT MECHANIC INBOARD/OUTBOARD: EMERY 03/13/20 160 RPT#: [id number] DC DATE: STATUS: ADM IN [facility] [address] [place] [address] END OF REPORT
--- NOTE | 2020-03-13 16:21 | MORECARE ---
CASE MANAGEMENT DISCHARGE SUMMARY PATIENT: CECI HANNA UNIT: [id number] ADM DATE: 03/09/20 AGE: 84 : 36 SEX: F ROOM/BED: D.[facility] AUTHOR: HUGO,DOC PHYSICIAN: REFERRING PHYSICIAN: JESSI BARNHART MD DATE OF SERVICE: 03/13/20 Discharge Plan Patient Name: CECI HANNA Facility: [facility]:[place] : 1935 Planned Disposition: Inpatient Rehab Anticipated Discharge Date: Discharge Date: Expected LOS: Initial Reviewer: [id number] Initial Review Date: 03/09/2020 Generated: 03/13/20 5:21 pm Comments DCP- Discharge Planning Updated by [id number]: Azul Moeller on 03/13/20 3:[address] MET WITH PATIENT AND DAUGHTER IN LAW (ELANA CAN [phone]) I SPOKE WITH HER AT LENGTH ABOUT PLAN OF CARE AND WHAT HER PRIOR LEVEL OF FUNCTION. ELANA STATES THAT SHE WAS ABLE TO AMBULATE WITH HER WALKER, BUT HAS BEEN FALLING ALOT RECENTLY. SHE WOULD GO TO THE [facility] AND DANCE BEFORE COVID HIT. SHE LIVES IN HER OWN ASSISTED APARTMENT AT [place] AND SHE HAS BEEN ON HOSPICE WITH [facility] FOR THE PAST 2 YEARS. ELANA WOULD LIKE HER TO TRY REHAB AND DR HEDRICK THINKS THAT WOULD BE A GOOD FOR HER IF SHE CAN TOLERATE IT AND FOLLOW DIRECTIONS. MARGARITO SIGNED AND IMM ALSO SIGNED AND EXPLAINED TO ELANA (POReanna). CM WILL CONTINUE TO FOLLOW AND ASSIST WITH DC PLANNING. DCP- Discharge Planning Updated by [id number]: Simran Hernandez on 03/12/20 5:[address] Patient Name: CECI HANNA Admission Status: ER Accout number: [id number] Admission Date: 03-09-2020 : 1935 Admission Diagnosis:TRAUM SUBDR HEM W LOC OF UNSP DURATION, INIT Attending: JESSI BARNHART Current LOS: 3 Anticipated DC Date: Planned Disposition: Primary Insurance: MEDICARE A & B Discharge Planning Comments: PATIENT IS A RESIDENT AT [facility] AND PLANS TO RETURN THERE UPON DISCHARGE. CM WILL CONTINUE TO FOLLOW AND ASSIST NEEDED WITH DISCHARGE PLANNING / NEEDS. Manager Collection: Simran Hernandez DCPIA - Discharge Planning Initial Assessment Updated by [id number]: Simran Hernandez on 03/12/20 6:37 pm * Is the patient Alert and Oriented? Yes * PCP PHILLIP * Pharmacy [facility] * Preadmission Environment Memory Care * Facility Name [facility] * ADLs Partial Dependent * Partial ADLs (Assistance needed) Medication Management * Equipment None * List name and contact numbers for known caregivers / representatives who currently or will assist patient after discharge: ELANA CAN - [facility]- [phone] * Verbal permission to speak to the caregivers and representatives has been obtained from the patient. Yes * Community resources currently utilized None * Additional services required to return to the preadmission environment? No * Can the patient safely return to the preadmission environment? Yes * Has this patient been hospitalized within the prior 30 days at any hospital? No Coverage Notice Reviewer: [id number] Moeller Notice Issued Date-Time: 03/13/2020 13:45 Notice Type: Patient Choice Letter Notice Delivered To: Other Relationship to Patient: Power of Manager Transit Literature Teacher Name: ELANA CAN Delivery Method: HAND - Hand Delivered Dianna Days: Prior Verbal Notification: Recipient Understood Notice: Yes Recipient Signature: Yes Med Rec Note Co-signed by Attending: Coverage Notice Comment: [facility] Reviewer: [id number] Moeller Notice Issued Date-Time: 03/13/2020 13:45 Notice Type: IM Discharge Notice Notice Delivered To: Other Relationship to Patient: Power of Manager Transit Literature Teacher Name: ELANA CAN Delivery Method: HAND - Hand Delivered Dianna Days: Prior Verbal Notification: Recipient Understood Notice: Yes Recipient Signature: Yes Med Rec Note Co-signed by Attending: Coverage Notice Comment: Last DP export: 03/13/20 3:01 p Patient Name: CECI HANNA Page [id number] at 1621 All edits/amendments must be made on the electronic document DICTATION DATE: 03/13/201620 FORENSIC ECONOMIST: EMERY 03/13/201620 RPT#: [id number] DC DATE: STATUS: ADM IN [facility] [address] [place] [address] END OF REPORT
--- NOTE | 2020-03-13 17:26 | NUR ---
PT BECOMING AGGITATED, YELLING AND ATTEMPTING TO HIT NURSING STAFF, CRYING OUT. CLONOPIN GIVEN.
--- NOTE | 2020-03-13 17:53 | NUR ---
CALLED ELANA, PTS POA AND REPORTED THAT PT IS HAVING AGGITATION. ELANA IS PLANNING TO COME TO THE CVICU TO SIT WITH PT SOON. REPORTED TO PT THAT SHE IS ON HER WAY SOON. PT IS BEGINNING TO CALM DOWN.
--- NOTE | 2020-03-13 18:54 | NUR ---
DCD SHALOM DRAIN. PT EVELYN WELL. NO ACTIVE BLEEDING FROM EXIT SITE NOTED. PT EVELYN WELL.
--- NOTE | 2020-03-13 18:55 | NUR ---
PT IS RESTING IN BED WITH EYES CLOSED AT THIS TIME. VSS. RECIVED IN REPORT THAT PT HAD HAD A ANXIOUS/COMBATIVE EPISODE AROUND 1700 AND WAS GIVEN HER KLONIPINE WHICH HAS FINALLY ALLOW PT TO CALM DOWN. I WILL PERFORM FULL ASSESSMENT AND DOC IN FLOW SHEET. HER CHAUDHARI CATHETOR IS HANGING BELOW BLADDER AND DRAINING. IV IN RIGHT FORARM IS INTACT C NO S/S OF INFILTRATION. SCDS ARE ON. BED IS LOW,SIDE RAISLX2,CALL LIGHT WITHIN REACH. WILL CONINTUE TO MONITOR
--- NOTE | 2020-03-13 21:00 | NUR ---
PT IS RESTING IN BED FIDDILING WITH GOWN. HE IS ONLY ALERT TO HERSELF AND WHEN I GO INTO HER ROOM TO HELP HER GET UNTANGLED SHE CRYIES AND SAY"O PLEASE DONT LEAVE ME". I TELL HER I AM WITH HER AND NOT GOING TO LEAVE HER.SHE VOICES "O THANK YOU LORD". HER VSS. SHE VOICES NO PAIN OR OTHER NEEDS WHEN ASKED. SHE REPOSITONS HERSELF FREQUENTLY BC SHE MOVES ALOT. I WAS SUCCESSFUL AT COMFORTING HER. HER BED IS LEFT LOW,SIDE RAISLX2,CALL LIGHT WITHIN REACH. WILL CONINTUE TO MONITOR. BED ALARM IS ON
--- NOTE | 2020-03-13 23:00 | NUR ---
PT IS RESTING IN BED WITH EYE CLOSED. VSS. WILL PERFORM RE-ASSESSMENT AT THIS TIME. BED IS LOW,SIDE RAISLX2,CALL LIGHT WITHIN REACH. WILL CONITNUE TO MONITOR
[2020-03-14] VITALS (9 sets, daily range): BP systolic 146–162; BP diastolic 52–76
--- NOTE | 2020-03-14 01:47 | NUR ---
PT IS RESTING IN BED WITH EYES CLOSED. VSS. BED IS LOW,SIDE RAISLX2,CALL LIGHT WITHIN REACH. WILL CONIITNUE TO MONITOR. BED ALARM IS ON
--- NOTE | 2020-03-14 04:04 | NUR ---
PT IS RESTING IN BED WITH EYES CLOSED ON LEFT SIDE SNORING. VSS. BED IS LOW,SIDE RAISLX2,CALL LIGHT WTIHIN REACH. WILL CONINTUE TO MONITOR
--- NOTE | 2020-03-14 06:10 | NUR ---
PT IS RESTING IN BED WITH EYES CLOSED. VSS. WHEN TRYING TO TALK TO HER TO GET HER CLEANED UP THIS MORING SHE HOLDS HER HANDS CLOSE TO HER BODY VERY TIGHTLY AND WILL NOT LET ME UPFOLD THEM. I TRIED TO REASSURE HER THAT I WAS JUST GOING TO GIVE HER A WARM BATH AND MAKE HER FEEL FRESH AND CLEAN AND SHE VOICED"NO NO NO". I WAS UNSUCCESSFUL OF ORIENTING HER. HER VITALS ARE STABLE. WILL LEAVE ALONE TO REST. SHE REPOSTIONS HERSELF. BED IS LOW,SIDE RAISLX2,CALL [facility] WITHIN REACH. WILL CONTINUE TO [facility]
[2020-03-14 06:24] LABS: BASOPHILS 0 % (0-2); EOSINOPHILS 0 % (0-7); HEMATOCRIT 36.9 % (36.0-48.0); IMMATURE GRANULOCYTES 0.6 % (0-5); LYMPHOCYTES 11.7 % (15-50); MCHC 32.5 g/dL (31.0-37.0); MCV 89.1 fL (80.0-100.0); MEAN PLATELET VOLUME 8.7 fL (7.4-10.4); MONOCYTES 5.7 % (2-11); PLATELET COUNT 223 10x3/uL (130-400); RBC 4.14 10x6/uL (4.00-5.40); RDW 12.8 % (11.5-14.5); WBC 7.2 10x3/uL (4.8-10.8)
[2020-03-14 06:38] LABS: ANION GAP 11.8 mmol/L (8-16); CALCIUM 8.2 mg/dL (8.5-10.1); CARBON DIOXIDE 22.1 mmol/L (21.0-32.0); CREATININE - SERUM 0.8 mg/dL (0.6-1.3); POTASSIUM - SERUM 3.9 mmol/L (3.5-5.1)
--- NOTE | 2020-03-14 07:29 | NUR ---
PT RESTING QUIETLY, VSS.
--- NOTE | 2020-03-14 09:56 | NUR ---
OOB TO CHAIR W/PTMAX ASST. PT GLOBALLY CONFUSED. CHAIR ALARM ON.
--- NOTE | 2020-03-14 10:33 | NUR ---
Rehab Note- ACute Inpatient Rehab prescreen order recieved. The patient is a good inpatient rehab candidate.Have spoken w/ ANNA Zamorano. Will accept the patient to [facility] Acute Inpatient Rehab when ready for discharge from the acute hospital. Thank you for this referral! Priyanka Monterroso RN Clinical Liaison, [facility] Rehab
--- NOTE | 2020-03-14 13:12 | MORECARE ---
CASE MANAGEMENT DISCHARGE SUMMARY PATIENT: CECI HANNA UNIT: [id number] ADM DATE: 03/09/20 AGE: 84 : 36 SEX: F ROOM/BED: D.02 AUTHOR: HUGO,DOC PHYSICIAN: REFERRING PHYSICIAN: JESSI BARNHART MD DATE OF SERVICE: 03/14/20 Discharge Plan Patient Name: CECI HANNA Facility: [facility]:[place] : 1935 Planned Disposition: Inpatient Rehab Anticipated Discharge Date: Discharge Date: Expected LOS: Initial Reviewer: [id number] Initial Review Date: 03/09/2020 Generated: 03/14/20 2:12 pm Comments DCP- Discharge Planning Updated by [id number]: Azul Moeller on 03/14/20 12:[address] I spoke with Priyanka in Inpatient rehab at [facility] and they will accept her today. DCP- Discharge Planning Updated by [id number]: Azul Moeller on 03/13/20 3:[address] MET WITH PATIENT AND DAUGHTER IN LAW (ELANA CAN [phone]) I SPOKE WITH HER AT LENGTH ABOUT PLAN OF CARE AND WHAT HER PRIOR LEVEL OF FUNCTION. ELANA STATES THAT SHE WAS ABLE TO AMBULATE WITH HER WALKER, BUT HAS BEEN FALLING ALOT RECENTLY. SHE WOULD GO TO THE CARING PLACE AND DANCE BEFORE COVID HIT. SHE LIVES IN HER OWN ASSISTED APARTMENT AT [place] AND SHE HAS BEEN ON HOSPICE WITH [facility] FOR THE PAST 2 YEARS. ELANA WOULD LIKE HER TO TRY REHAB AND DR HEDRICK THINKS THAT WOULD BE A GOOD FOR HER IF SHE CAN TOLERATE IT AND FOLLOW DIRECTIONS. MARGARITO SIGNED AND IMM ALSO SIGNED AND EXPLAINED TO ELANA (POA). CM WILL CONTINUE TO FOLLOW AND ASSIST WITH DC PLANNING. DCP- Discharge Planning Updated by [email or web address]: Simran Hernandez on 03/12/20 5:[address] Patient Name: CECI HANNA Admission Status: ER Accout number: [id number] Admission Date: 03-09-2020 : 1935 Admission Diagnosis:TRAUM SUBDR HEM W LOC OF UNSP DURATION, INIT Attending: JESSI BARNHART Current LOS: 3 Anticipated DC Date: Planned Disposition: Primary Insurance: MEDICARE A & B Discharge Planning Comments: PATIENT IS A RESIDENT AT [facility] AND PLANS TO RETURN THERE UPON DISCHARGE. CM WILL CONTINUE TO FOLLOW AND ASSIST NEEDED WITH DISCHARGE PLANNING / NEEDS. Land Resource Specialist: Simran Davidmarciano MARINELLI - Discharge Planning Initial Assessment Updated by [id number]: Simran Hernandez on 03/12/20 6:37 pm * Is the patient Alert and Oriented? Yes * PCP PHILLIP * Pharmacy [facility] * Preadmission Environment Memory Care * Facility Name [facility] * ADLs Partial Dependent * Partial ADLs (Assistance needed) Medication Management * Equipment None * List name and contact numbers for known caregivers / representatives who currently or will assist patient after discharge: ELANA CAN - DAUGHTER- [phone] * Verbal permission to speak to the caregivers and representatives has been obtained from the patient. Yes * Community resources currently utilized None * Additional services required to return to the preadmission environment? No * Can the patient safely return to the preadmission environment? Yes * Has this patient been hospitalized within the prior 30 days at any hospital? No Coverage Notice Reviewer: [id number] Moeller Notice Issued Date-Time: 03/13/2020 13:45 Notice Type: Patient Choice Letter Notice Delivered To: Other Relationship to Patient: Power of Professional Services Specialist Line Server Name: ELANA CAN Delivery Method: HAND - Hand Delivered Dianna Days: Prior Verbal Notification: Recipient Understood Notice: Yes Recipient Signature: Yes Med Rec Note Co-signed by Attending: Coverage Notice Comment: [facility] Reviewer: [id number] Moeller Notice Issued Date-Time: 03/13/2020 13:45 Notice Type: IM Discharge Notice Notice Delivered To: Other Relationship to Patient: Power of Professional Services Specialist Line Server Name: ELANA CAN Delivery Method: HAND - Hand Delivered Dianna Days: Prior Verbal Notification: Recipient Understood Notice: Yes Recipient Signature: Yes Med Rec Note Co-signed by Attending: Coverage Notice Comment: Last DP export: 03/13/20 3:21 p Patient Name: CECI HANNA Page [id number] at 1312 All edits/amendments must be made on the electronic document DICTATION DATE: 03/14/20 1312 SCRAP SHEAR OPERATOR: EMERY 03/14/20 1312 RPT#: [id number] DC DATE: STATUS: ADM IN [facility] [address] [facility] [address] END OF REPORT
[2020-03-14] MEDS ORDERED: MEDROL DOSE PACK4 MG PO (16:07)
--- NOTE | 2020-03-14 16:21 | NUR ---
CALLED DR HEDRICK AND ALTA'D NEW ORDER FOR SOLUMEDROL DOSE PK TO START WHEN PT GOES TO REHAB.
--- NOTE | 2020-03-14 18:03 | NUR ---
PT DC TO REHAB. DENTURES WITH PT IN REHAB.
--- NOTE | 2020-03-15 11:49 | MORECARE ---
CASE MANAGEMENT DISCHARGE SUMMARY PATIENT: CECI HANNA UNIT: [id number] ADM DATE: 03/09/20 AGE: 84 : 36 SEX: F ROOM/BED: D.02 AUTHOR: HUGO,DOC PHYSICIAN: REFERRING PHYSICIAN: JESSI BARNHART MD DATE OF SERVICE: 03/15/20 Discharge Plan Patient Name: CECI HANNA Facility: [facility]:[place] : 1935 Planned Disposition: Inpatient Rehab Anticipated Discharge Date: Discharge Date: 03/14/2020 Expected LOS: Initial Reviewer: [id number] Initial Review Date: 03/09/2020 Generated: 03/15/20 12:48 pm Comments DCP- Discharge Planning Updated by [id number]: Azul Moeller on 03/14/20 12:[address] I spoke with Priyanka in Inpatient rehab at [facility] and they will accept her today. DCP- Discharge Planning Updated by [id number]: Azul Moeller on 03/13/20 3:[address] MET WITH PATIENT AND DAUGHTER IN LAW (ELANA CAN [phone]) I SPOKE WITH HER AT LENGTH ABOUT PLAN OF CARE AND WHAT HER PRIOR LEVEL OF FUNCTION. ELANA STATES THAT SHE WAS ABLE TO AMBULATE WITH HER WALKER, BUT HAS BEEN FALLING ALOT RECENTLY. SHE WOULD GO TO THE CARING PLACE AND DANCE BEFORE COVID HIT. SHE LIVES IN HER OWN ASSISTED APARTMENT AT [place] AND SHE HAS BEEN ON HOSPICE WITH [facility] FOR THE PAST 2 YEARS. ELANA WOULD LIKE HER TO TRY REHAB AND DR HEDRICK THINKS THAT WOULD BE A GOOD FOR HER IF SHE CAN TOLERATE IT AND FOLLOW DIRECTIONS. MARGARITO SIGNED AND IMM ALSO SIGNED AND EXPLAINED TO ELANA (POA). CM WILL CONTINUE TO FOLLOW AND ASSIST WITH DC PLANNING. DCP- Discharge Planning Updated by [id number]: Simran Hernandez on 03/12/20 5:[address] Patient Name: CECI HANNA Admission Status: ER Accout number: [id number] Admission Date: 03-09-2020 : 1935 Admission Diagnosis:TRAUM SUBDR HEM W LOC OF UNSP DURATION, INIT Attending: JESSI BARNHART Current LOS: 3 Anticipated DC Date: Planned Disposition: Primary Insurance: MEDICARE A & B Discharge Planning Comments: PATIENT IS A RESIDENT AT [facility] AND PLANS TO RETURN THERE UPON DISCHARGE. CM WILL CONTINUE TO FOLLOW AND ASSIST NEEDED WITH DISCHARGE PLANNING / NEEDS. Energy Rater: Simran Hernandez DCPIA - Discharge Planning Initial Assessment Updated by [id number]: Simran Hernandez on 03/12/20 6:37 pm * Is the patient Alert and Oriented? Yes * PCP PHILLIP * Pharmacy [facility] * Preadmission Environment Memory Care * Facility Name [facility] * ADLs Partial Dependent * Partial ADLs (Assistance needed) Medication Management * Equipment None * List name and contact numbers for known caregivers / representatives who currently or will assist patient after discharge: ELANA CAN - [facility]- [phone] * Verbal permission to speak to the caregivers and representatives has been obtained from the patient. Yes * Community resources currently utilized None * Additional services required to return to the preadmission environment? No * Can the patient safely return to the preadmission environment? Yes * Has this patient been hospitalized within the prior 30 days at any hospital? No Coverage Notice Reviewer: [id number] Moeller Notice Issued Date-Time: 03/13/2020 13:45 Notice Type: Patient Choice Letter Notice Delivered To: Other Relationship to Patient: Power of Substitute Bus Driver Harbour Master Name: ELANA CAN Delivery Method: HAND - Hand Delivered Dianna Days: Prior Verbal Notification: Recipient Understood Notice: Yes Recipient Signature: Yes Med Rec Note Co-signed by Attending: Coverage Notice Comment: [facility] Reviewer: [id number] Moeller Notice Issued Date-Time: 03/13/2020 13:45 Notice Type: IM Discharge Notice Notice Delivered To: Other Relationship to Patient: Power of Substitute Bus Driver Harbour Master Name: ELANA CAN Delivery Method: HAND - Hand Delivered Dianna Days: Prior Verbal Notification: Recipient Understood Notice: Yes Recipient Signature: Yes Med Rec Note Co-signed by Attending: Coverage Notice Comment: Last DP export: 03/14/20 12:12 p Patient Name: CECI HANNA Page [phone] at 1149 All edits/amendments must be made on the electronic document DICTATION DATE: 03/15/20 1148 SLOT TAG INSERTER: EMERY 03/15/20 1148 RPT#: [id number] DC DATE:03/14/20 STATUS: DIS IN [facility] [address] [place] [address] END OF REPORT
== END 2020-03-14 18:03 | DRG 26 ==
LOC: D.ER 08:15 → D.ICU 09:09 → D.CVICU 09:09
PROVIDERS: Anesthesiology; Family Medicine; Neurological Surgery; ADMIT Family Medicine; ATTEND Family Medicine
PROC: 00C40ZZ Extirpation of Matter from Intracranial Subdural Space, Open Approach (ICD-10-PCS; principal; 2020-03-11 11:30)
DX: S06.5X9A Traumatic subdural hemorrhage with loss of consciousness of unspecified duration, initial encounter (principal); S22.089A Unspecified fracture of T11-T12 vertebra, initial encounter for closed fracture; S32.059A Unspecified fracture of fifth lumbar vertebra, initial encounter for closed fracture; N39.0 Urinary tract infection, site not specified; W19.XXXA Unspecified fall, initial encounter; Y92.89 Other specified places as the place of occurrence of the external cause; S00.93XA Contusion of unspecified part of head, initial encounter; F03.90 Unspecified dementia, unspecified severity, without behavioral disturbance, psychotic disturbance, mood disturbance, and anxiety; I10 Essential (primary) hypertension; K21.9 Gastro-esophageal reflux disease without esophagitis; R53.1 Weakness

== ENCOUNTER 2020-03-14 18:35 | Inpatient (IN) | payer MEDICARE, BC ==
[~2020-03-14] VITALS: Ht 154.9 cm; Wt 53.1 kg
[~2020-03-14 18:35] MED LIST changes: +CALCIUM 600 +1 EAC3 PO; -FOLIC ACID0.8 MG; +FOLIC ACID0.8 MG PO; +HYDROCODON-ACE1 EAC7 PO; +MEDROL DOSE PACK4 MG PO; +ZOFRAN ODT4 MG/UDTAB PO; -ZOLOFT100 MG; +ZOLOFT100 MG PO
--- NOTE | 2020-03-14 19:30 | NUR ---
PATIENT RECEIVED LAYING IN BED. ASSESSMENT & VITAL SIGNS DONE. NO C/O PAIN OR DISTRESS. CLEAN & DRY, NO INCONTINENCE. BED LOW. ALARM ON. CALL LIGHT WITHIN REACH. WILL CONTINUE TO MONITOR.
[2020-03-14 20:00] VITALS: BP 109/65
[2020-03-14 21:52] VITALS: BP 109/65; BMI 22.1
--- NOTE | 2020-03-15 01:28 | NUR ---
PATIENT HAD INCONTINENCE OF BOWEL & BLADDER. BED CHANGED. PATIENT HOB AT 45 DEGREES. PATIENT COVERED WITH WARM BLANKET. PATIENT EYES CLOSED. BED LOW. ALARM ON.CALL LIGHT WITHIN REACH. WILL CONTINUE TO MONITOR.
--- NOTE | 2020-03-15 01:30 | NUR ---
I have reviewed this patient and I concur with the Shift Assessment completed by the Licensed Practical Nurse today this shift.
--- NOTE | 2020-03-15 05:56 | NUR ---
PATIENT EYES CLOSED. RESPIRATIONS 18 & EVEN. BED LOW. CALL LIGHT WITHIN REACH. ALARM ON. WILL CONTINUE TO MONITOR.
[2020-03-15 06:22] LABS: ANION GAP 10.1 mmol/L (8-16); CALCIUM 9.3 mg/dL (8.5-10.1); CARBON DIOXIDE 26.7 mmol/L (21.0-32.0); CREATININE - SERUM 0.9 mg/dL (0.6-1.3); POTASSIUM - SERUM 3.8 mmol/L (3.5-5.1)
[2020-03-15 07:11] LABS: BASOPHILS 0 % (0-2); EOSINOPHILS 0.2 % (0-7); HEMATOCRIT 40.2 % (36.0-48.0); HEMOGLOBIN 13.2 g/dL (12-16); IMMATURE GRANULOCYTES 0.8 % (0-5); LYMPHOCYTES 26.8 % (15-50); MCH 29.1 pg (26.0-34.0); MCHC 32.8 g/dL (31.0-37.0); MCV 88.5 fL (80.0-100.0); MEAN PLATELET VOLUME 8.7 fL (7.4-10.4); MONOCYTES 7.4 % (2-11); NEUTROPHILS 64.8 % (40-80); PLATELET COUNT 250 10x3/uL (130-400); RBC 4.54 10x6/uL (4.00-5.40); RDW 12.9 % (11.5-14.5); WBC 6.4 10x3/uL (4.8-10.8)
[2020-03-15 08:00] VITALS: BP 150/59
--- NOTE | 2020-03-15 08:00 | NUR ---
HAS TO BED FED ALL MEALS. SHE IS CONFUSED BUT COOPERATIVE. BED IN LOWEST POSITION. SIDE RAILS UP X2. CALL LIGHT IN REACH
--- NOTE | 2020-03-15 11:00 | NUR ---
DC HOME WITH ALL BELONGINGS. MEDS CALLED INTO PHARMACY. REVIEWED MEDS, DC PLAN AND S/S INFECTION TO KNEE TO WATCH FOR. FAMILY PICKED UP PT. DENIES QUESTIONS. TOOK PERSONAL WALKER HOME TOO.
--- NOTE | 2020-03-15 12:35 | NUR ---
SITTING UP IN BED BEING FED LUNCH BY VISITOR. SHE DENIES PAIN BUT ASKED IF HER "MOMMY" WAS AWAKE YET. (PT IS 84). SHE IS INCONT OF B/B. SMALL DRESSING OVER WOUND TO RT SIDE OF HEAD.
[2020-03-15 14:14] VITALS: BMI 22.1
--- NOTE | 2020-03-15 18:53 | NUR ---
BEDSIDE REPORT COMPLETE. PT SITTING IN W/C AT NURSES STATION. PT CONFUSED AND RESTLESS WITH POOR ATTENTION SPAN. CHAIR ALARM ON. PT DENIES ANY PAIN. WILL CONTINUE TO MONITOR
[2020-03-15 21:28] VITALS: BP 106/84
[2020-03-15 21:36] VITALS: BP 97/55
--- NOTE | 2020-03-16 01:25 | NUR ---
PT LYING IN BED SUPINE EYES CLOSED RESTING QUIETLY. RR EVEN AND UNLABORED. CALL LIGHT WITHIN REACH. BED ALARM ON. CPOC
--- NOTE | 2020-03-16 04:31 | NUR ---
PT LYING IN BED ON RIGHT SIDE EYES CLOSED RESTING QUIETLY. RR EVEN AND UNLABORED. CALL LIGHT WITHIN REACH. BED ALARM ON. CPOC
--- NOTE | 2020-03-16 08:05 | NUR ---
RESTING IN BED WITH EYES CLOSED, NO S/S OF DISTRESS NOTED, RESP EVEN AND UNLABORED, C/L AND FLUIDS IN REACH.
[2020-03-16 08:32] VITALS: BP 150/66
--- NOTE | 2020-03-16 09:03 | NUR ---
ASSESSMENT COMPLETE, RESTING IN BED, DENIES ANY NEEDS AT THIS TIME, C/L AND FLUIDS IN REACH.
--- NOTE | 2020-03-16 11:38 | NUR ---
PATIENT ADMITTED TO REHAB FROM ACUTE FLOOR. DR. FISHER IS PATIENT PCP. ELANA CAN IS PATIENT POA WHICH IS HER DAUGHTER N LAW ) SHE IS A CLIENT OF [facility] AND HAS AN APARTMENT AT [facility]. WILL CONTINUE TO FOLLOW WITH PATIENT.
--- NOTE | 2020-03-16 13:29 | NUR ---
UP IN W/C WITH THERAPY, C/O PAIN, GAVE PRN PAIN MED, DENIES ANY OTHER NEEDS AT THIS TIME, CONTINUES WITH THERAPY.
--- NOTE | 2020-03-16 16:11 | NUR ---
UP IN W/C, DENIES ANY NEEDS AT THIS TIME, C/L AND FLUIDS IN REACH, BED AND CHAIR ALARM ON.
--- NOTE | 2020-03-16 18:52 | NUR ---
BEDSIDE REPORT COMPLETE. PT LYING IN BED EYES CLOSED RESTING QUIETLY. RR EVEN AND UNLABORED. EASILY AROUSED WITH STIMULI. DENIES ANY NEEDS. C/O MILD DISCOMFORT. ALERT TO SELF ONLY. CALL LIGHT WITHIN REACH. BED ALARM ON. CPOC
[2020-03-16 20:59] VITALS: BP 113/59
--- NOTE | 2020-03-17 00:36 | NUR ---
PT LYING IN BED ON RIGHT SIDE EYES CLOSED RESTING. RR EVEN AND UNLABORED. CALL LIGHT WITHIN REACH. BED ALARM ON. WILL CONTINUE TO MONITOR
--- NOTE | 2020-03-17 04:25 | NUR ---
PT LYING IN BED SUPINE EYES CLOSED RESTING. RR EVEN AND UNLABORED. CALL LIGHT WITHIN REACH. BED ALARM ON. CPOC
--- NOTE | 2020-03-17 06:17 | NUR ---
INCONTINENCE CARE PROVIDED. SMALL URINE INCONTINENCE. POSITIONED PT ON LEFT SIDE. DENIES ANY OTHER NEEDS OR PAIN. CALL LIGHT WITHIN REACH. BED ALARM ON. CPOC
--- NOTE | 2020-03-17 07:01 | NUR ---
POSITIONED ON LEFT SIDE AND RESTING QUIETLY WITH EYES CLOSED. RESP EVEN AND UNLABORED ON RA. CYN PATENT TO RIGHT SIDE OF HEAD C/D/I AND CONDOMINIUM PROPERTY MANAGER. SIDERAILS UP X 2, CALL LIGHT IN REACH AND BED IN LOW, LOCKED POSITION WITH BED ALARM OPERATIONAL.
[2020-03-17 07:22] LABS: BASOPHILS 0 % (0-2); EOSINOPHILS 0.6 % (0-7); HEMATOCRIT 38.4 % (36.0-48.0); HEMOGLOBIN 12.2 g/dL (12-16); IMMATURE GRANULOCYTES 0.9 % (0-5); LYMPHOCYTES 15.5 % (15-50); MCH 28.5 pg (26.0-34.0); MCHC 31.8 g/dL (31.0-37.0); MCV 89.7 fL (80.0-100.0); MEAN PLATELET VOLUME 8.8 fL (7.4-10.4); MONOCYTES 8.4 % (2-11); NEUTROPHILS 74.6 % (40-80); PLATELET COUNT 242 10x3/uL (130-400); RBC 4.28 10x6/uL (4.00-5.40); RDW 13.5 % (11.5-14.5)
[2020-03-17 07:29] LABS: ANION GAP 10.8 mmol/L (8-16); CALCIUM 9.2 mg/dL (8.5-10.1); CARBON DIOXIDE 27.2 mmol/L (21.0-32.0); CREATININE - SERUM 0.9 mg/dL (0.6-1.3)
[2020-03-17 09:46] VITALS: BP 159/101
--- NOTE | 2020-03-17 14:10 | NUR ---
Nutrition Follow-up: Diet: Regular Mech Soft with Thin Liquids + Ensure TID PO intake: 0-0-75% x 3 meals yesterday; discussed in care team meeting and with patient's ex. dtr in-law. States that patient is eating better today. She is apparently having some difficulty with staying awake during meal times. No BM since admit. WT: 117# (03/15/20) Meds noted: methylprednisone, remeron. Labs noted: BUN 44(H), Glu 109(H) Recommend continue current diet as tolerated. Continue oral nutrition supplements. Encourage PO intake. RD following.
--- NOTE | 2020-03-17 14:30 | NUR ---
AFTER PUTTING PT BACK TO BED FOLLOWING PT, SHE BECAME VERY RESTLESS AND WAS MEDICATED WITH KLONOPIN ORDERED. PT STARTED TO BECOME MORE RESTLESS AND TRYING TO CRAWL OUT OF BED AND EVEN TRYING TO GO BETWEEN THE SIDERAILS ON ONE SIDE. ASSISTED PT BACK INTO THE BED AND TRIED TO CALM HER DOWN. SHE BECAME VERY COMBATIVE AND VERBALLY ABUSIVE WHILE CALLING HER DAUGHTERS NAME. DAUGHTER CONTACTED AND ASKED TO COME BACK TO HOSPITAL AND SEE IF SHE WOULD CALM DOWN. SHE DID CALM DOWN WHEN DAUGHTER HERE BUT BECAME AGITATED AGAIN AFTER SHE LEFT. WAS ABLE TO CALM HER AT THIS TIME AND DAUGHTER WILL BE HERE FOR EVENING MEAL.
--- NOTE | 2020-03-17 15:53 | NUR ---
I have reviewed this patient and I concur with the Shift Assessment completed by the Licensed Practical Nurse today this shift.
--- NOTE | 2020-03-17 16:19 | NUR ---
CARE TEAM MEETING: PATIENT FAMILY ATTENDED THE MEETING. QUESTIONS AND CONCERNS WERE ADDRESSED. PATIENT WILL CONTINUE STAY HERE UNTIL 03/29/20 AND WILL DISCHARGE TO A FACILITY AND WILL CONTINUE WITH [facility]. WILL CONTINUE TO FOLLOW WITH PATIENT.WILL CONTINUE TO FOLLOW WITH PATIENT.
--- NOTE | 2020-03-17 19:00 | NUR ---
BEDSIDE REPORT COMPLETE. PT LYING IN BED VISITING WITH FAMILY. DENIES ANY NEEDS OR PAIN. ALERT AND ORIENTED TO SELF. CALL LIGHT WITHIN REACH. BED ALARM ON. CPOC
[2020-03-17 23:05] VITALS: BP 115/61
--- NOTE | 2020-03-18 01:05 | NUR ---
PT LYING IN BED SUPINE EYES CLOSED RESTING QUIETLY. RR EVEN AND UNLABORED. CALL LIGHT WITHIN REACH. BED ALARM ON. WILL CONTINUE TO MONITOR
--- NOTE | 2020-03-18 04:17 | NUR ---
PT LYING IN BED ON RIGHT SIDE EYES CLOSED RESTING. RR EVEN AND UNLABORED. CALL LIGHT WITHIN REACH. BED ALARM ON. WILL CONTINUE TO MONITOR
--- NOTE | 2020-03-18 06:18 | NUR ---
PT LYING IN BED ON RIGHT SIDE EYES CLOSED RESTING. RR EVEN AND UNLABORED. CALL LIGHT WITHIN REACH. BED ALARM ON. CPOC
--- NOTE | 2020-03-18 07:05 | NUR ---
POSITIONED ON LEFT SIDE WITH EYES CLOSED. RESP EVEN AND UNLABORED VIA RA. CYN TO RIGHT SIDE OF HEAD C/D/I. NO APPARENT PROBLEMS AT THIS TIME. SIDERAILS UP X 2, CALL LIGHT IN REACH AND BED IN LOW LOCKED POSITION.
[2020-03-18 08:00] VITALS: BP 157/52
--- NOTE | 2020-03-18 16:10 | NUR ---
PT RESTING QUEITLY WITH EYES CLOSED. RESP EVEN AND UNLABORED. WAS UP WITH PT THIS MORNING FOR SHOWER AND EXERCISE. PLACED BACK IN BED AT 1230 AND MEDICATED FOR C/O ABDOMINAL PAIN. MEDICATED WITH NORCO ORDERED.
--- NOTE | 2020-03-18 18:55 | NUR ---
BEDSIDE REPORT COMPLETE. PT LYING IN BED AWAKE AND CRYING OUT. PT STATES SHE IS HAVING ACHEY BURNING PAIN IN ABDOMEN. WILL ADMINISTER PAIN MEDICATION ORDERED. PT IS ALERT TO SELF ONLY. CONTINUES TO TRY AND CLIMB OOB. BED ALARM ON. ALL OTHER FALL PRECAUTIONS IN PLACE. CALL LIGHT IS WITHIN REACH. WILL CONTINUE TO MONITOR
[2020-03-18 21:53] VITALS: BP 109/55
--- NOTE | 2020-03-18 23:46 | NUR ---
PT LYING IN BED ON LEFT SIDE EYES CLOSED RESTING. RR EVEN AND UNLABORED. CALL LIGHT WITHIN REACH. BED ALARM ON. CPOC
--- NOTE | 2020-03-19 03:01 | NUR ---
I HAVE RECEIVED REPORT FOR THIS PT. PT LYING IN BED RESTING QUIETLY IN BED IN SUPINE POSITION. RESPONSE TO VOICE STIMULATION. NO SIGNS OR SYMPTOMS OF DISTRESS NOTED. RESPIRATIONS EVEN AND UNLABORED. SIDERAILS UP x2 CALL LIGHT AND OTHER PERSONAL ITEMS WITH IN REACH. BED IS IN ITS LOWEST POSITION. PT HAS RODRIGUEZ ALARM ON AND ACTIVE. WILL CONTINUE TO MONITOR
--- NOTE | 2020-03-19 07:02 | NUR ---
NO SIGNS OF DISTRESS NOTED CALL LIGHT WITH IN REACH.
--- NOTE | 2020-03-19 07:15 | NUR ---
RESTING QUIETLY IN BED.AROUSES TO VERBAL STIMULI.ASSESSMENT COMPLETED.CONFUSED AND DISORIENTED.CL IN EASY REACH,BED IN LOW POSITION.BED ALARM ON AND WORKING.WILL CONTINUE WITH CURRENT PLAN OF CARE.
[2020-03-19 07:44] LABS: BASOPHILS 0 % (0-2); EOSINOPHILS 2.2 % (0-7); HEMOGLOBIN 11.4 g/dL (12-16); IMMATURE GRANULOCYTES 0.6 % (0-5); LYMPHOCYTES 23.9 % (15-50); MCH 28.6 pg (26.0-34.0); MCHC 30.8 g/dL (31.0-37.0); MONOCYTES 8.7 % (2-11); NEUTROPHILS 64.6 % (40-80); PLATELET COUNT 219 10x3/uL (130-400); RBC 3.98 10x6/uL (4.00-5.40); RDW 13.7 % (11.5-14.5); WBC 7.8 10x3/uL (4.8-10.8)
[2020-03-19 07:51] LABS: ANION GAP 8.8 mmol/L (8-16); CALCIUM 9.1 mg/dL (8.5-10.1); CARBON DIOXIDE 32.5 mmol/L (21.0-32.0); CREATININE - SERUM 0.9 mg/dL (0.6-1.3); POTASSIUM - SERUM 4.3 mmol/L (3.5-5.1)
[2020-03-19 08:00] VITALS: BP 145/59
--- NOTE | 2020-03-19 08:54 | RHP ---
PATIENT: CECI HANNA MEDICAL RECORD: [id number] ACCOUNT: [id number] LOCATION:[id number] : 36 ADMISSION DATE: 03/14/20 REHABILITATION HISTORY AND PHYSICAL EXAMINATION POST ADMISSION PHYSICIAN EXAMINATION ADMITTING DIAGNOSIS: Closed head injury. HISTORY OF PRESENT ILLNESS: The patient is an 84-year-old female patient who presented to EMS after a fall when she tripped and fell into a wheelchair, hitting her head. She is a resident of [facility]. She had a hematoma to the right side of her head as well as her elbow. Complained of right-sided chest pain. CT of the head showed a large subdural hematoma with mass effect from right to left with shifting of 7-8 mm with minimal effacement of the quadrigeminal and suprasellar cisterns. She was seen and evaluated by neurosurgery, underwent vivienne hole on 03/11/2020. She has been in the [facility] ICU for continued observation. She had some bradycardia during her stay. She had been receiving PT and speech therapy during her stay. She has been progressing slowly with her mobility. She will be monitored closely for seizures, cognition, loss of consciousness, pain controls, monitoring her O2 sats, watching her blood pressures closely and her heart rate. She is on electrolyte protocol, weakness, balance deficits, decreased activity tolerance, decreased quality of life, limited safety awareness. She has medical complexity and risk for falls. She needs cues for use of equipment. She has got low endurance, unsteady gait and balance. She fatigues easily. These are all barriers to her to not been able to discharge back to the [facility] at this time. She lived there and was completely independent with ADLs and mobility, using a rolling walker requiring just some oversight for dementia. She is currently requiring assist for ADLs, even with feeding up to total assist for ADLs and max assist to total assist for mobility. Her daughter would like for her to return back to there with her prior level of functioning if there is any possibility of this. COMORBIDITIES: Include subdural hematoma, intracranial bleed, contusion of the head, dementia, UTI, hypoxia, impaired skin integrity, respiratory distress, pain, acute mental status changes, weight loss, malnutrition, UTI, postop bleeding, and wound dehiscence in the past. PAST MEDICAL HISTORY: Significant for CVA, thyroid problems, acid reflux, coronary artery disease, hypertension, chronic back pain, dementia. PAST SURGICAL HISTORY: Includes coronary artery bypass grafting. She has had a laparoscopic cholecystectomy and hernia repair. ALLERGIES: No known drug allergies. CURRENT MEDICATIONS: Include folic acid 0.8 mg daily, Norvasc 2.5 mg daily, Zoloft 100 mg daily. She is on a Medrol prednisolone tapering Dosepak. She is on Protonix 40 mg daily, Synthroid 88 mcg daily. She is on Os-Seferino with D daily, Remeron 15 mg at bedtime, melatonin 6 mg at bedtime, [employer] 5/325 one to two tabs q.4-6 hours p.r.n., Zofran 4 mg q.6 hours p.r.n., Klonopin 0.6 mg q.6 hours p.r.n., and Tylenol 650 every 4 hours p.r.n. HABITS: No alcohol or tobacco use. HISTORY AND PHYSICAL [id number] CECI HANNA FAMILY HISTORY: Noncontributory. SOCIAL HISTORY: The patient hopes to return back home and get back to her prior level of functioning. REVIEW OF SYSTEMS: GENERAL: Does complain of some weakness and fatigue. HEENT: Denies cold, cough, or congestion. CARDIOVASCULAR: Denies any chest pain. PHYSICAL EXAMINATION: VITAL SIGNS: Her vital signs are stable. She is afebrile. GENERAL: An elderly female, in no acute distress, alert upon exam. HEENT: Normocephalic. She does have a noted hematoma and previous surgical incision, a vivienne hole. Pupils are equal, round and reactive to light. Extraocular muscles are intact. NECK: Supple, with no lymphadenopathy. LUNGS: Clear in upper zaman. No wheezing or rales. HEART: Regular rate and rhythm. She does have a holosystolic murmur. ABDOMEN: Soft, benign, and nondistended. Positive bowel sounds times 4. EXTREMITIES: No clubbing, cyanosis or edema. NEUROLOGIC: She is slow to mentate. She does have a lot of proximal muscle weakness of her thighs and upper arms. LABORATORY DATA: White count is 6.4, H&H of 13 and 40, and platelet count was noted to be 250. Her sodium is 139, potassium of 3.8, BUN and creatinine of 23 and 0.9, and blood sugar was noted to be 80. ASSESSMENT: This is an 84-year-old female patient admitted to rehab with a working diagnosis of traumatic brain injury with subdural hematoma, status post vivienne hole treatment. The patient has potential to make improvement. We instituted the following multidisciplinary therapies including but not limited to physical, occupational, respiratory, speech, nutritional services, prosthetics and orthotics. Given her complex medical condition and risks for more complications, rehabilitation services cannot be provided at a low level of care such as skilled nurse facility. PLAN: 1. Admit to [facility] for intensive inpatient therapy to include the following disciplines; A. Physical therapy to improve gait, all transfer skills and bed mobility to a modified independent level. B. Occupational therapy to improve activities of daily living to independent level. C. Case management to assist with discharge planning and placement options. D. Nutrition to assist with nutritional needs. E. Rehabilitation nursing to assist in monitoring the patient's underlying medical conditions and to assist with any type bowel or bladder management. 2. The patient's current medication and medical care will be continued. 3. The patient will be placed on standard fall precautions. 4. The patient's estimated length of stay is approximately 7-10 days. 5. We will discuss this patient during care team staff meeting this week. We will watch her pulse closely and get cardiology consultation if necessary and I will see again in the a.m. HISTORY AND PHYSICAL [id number] CECI HANNA TRANSINT:[id number] Voice Confirmation ID: [id number] DOCUMENT ID: [id number] AMY notes whether there has been none or any medical/functional change since admission: - No change since preadmission screen. AMY attests patient continues to be appropriate for IRF: - Continues to be appropriate. JESSI BOWDEN MD at [id number] CC: [id number] DICTATION DATE: 03/15/20 0850 [employer] SALES REPRESENTATIVE: 03/15/20 1203 ADM IN [place] [id number] [place] [address]
--- NOTE | 2020-03-19 15:06 | NUR ---
PT VERY ANXIOUS, REACHING UP TO HEAVEN SAYING "TAKE ME GOD, I LOVE YOU, I SHOULD HAVE LET HER SIT DOWN", SHE IS CRYING AT TIMES, TRYING TO GET OUT OF BED. WILL NOT ANSWER QUESTIONS OR FOLLOW COMMANDS. SHE ASKS NURSE IF NURSE CAN SEE "THOSE PEOPLE"....KLONIPIN 0.5MG PO GIVEN ORDERED
--- NOTE | 2020-03-19 15:12 | NUR ---
STILL TRYING TO GET OUT OF BED. PUT IN WC AND BROUGHT TO NURSING DESK TO BE CLOSE TO STAFF.
[2020-03-19 19:00] VITALS: BP 118/47
--- NOTE | 2020-03-19 19:15 | NUR ---
PT LYING IN BED VISITOR IN ROOM. CL IN REACH. BED ALARM ON. CONFUSED. RESP EVEN AND UNLABORED. DENIES NEEDS AT THIS TIME. BED IN LOW SIDE RAILS X3. LUNGS CLEAR. BOWEL ACTIVE X4. WILL CONTINUE TO MONITOR.
--- NOTE | 2020-03-20 01:10 | NUR ---
I have reviewed this patient and I concur with the Shift Assessment completed by the Licensed Practical Nurse today this shift.
[2020-03-20 08:00] VITALS: BP 155/68
--- NOTE | 2020-03-20 19:20 | NUR ---
PT TRYING TO GET OUT OF BED. ASSISTED TO BATHROOM. PT BACK IN BED. BED ALARM ON. CL IN REACH. PT CONFUSED. DENIES FURTHER NEEDS AT THIS TIME. BED IN LOW SIDE RAILS X3. LUNGS CLEAR. BOWEL ACTIVE X4. PAIN PILL GIVEN FOR STOMACH PAIN. WILL CONTINUE TO MONITOR.
--- NOTE | 2020-03-20 19:35 | NUR ---
SLEPT MOST OF THE DAY.REFUSED BREAKFAST AND LUNCH BUT DID EAT SMALL AMOUNT DINNER,SPOON FED BY DAUGHTER.VERY CONFUSED AND DISORIENTED.WAS COOPERATIVE WITH TAKING MEDS.C/O STOMACH PAIN,DAUGHTER STATES PATIENT HAS A HERNIA THAT HURTS HER.NORCO WAS GIVEN FOR PAIN WITH A GOOD RESPONSE RECEIVED.
[2020-03-20 19:49] VITALS: BP 133/57
--- NOTE | 2020-03-21 00:30 | NUR ---
I have reviewed this patient and I concur with the Shift Assessment completed by the Licensed Practical Nurse today this shift.
--- NOTE | 2020-03-21 05:33 | NUR ---
PT RESTING QUIETLY. CL IN REACH. NO DISTRESS NOTED. WCTM
--- NOTE | 2020-03-21 07:25 | NUR ---
PT ASLEEP STUFFED DOG AT DOOR FOR PROTECTION, NO NEEDS NOTED FALL PRECAUTIONS IN PLACE, FLUIDS/CALL LIGHT WITHIN REACH
[2020-03-21 08:21] VITALS: BP 157/77
--- NOTE | 2020-03-21 14:36 | NUR ---
PRN NORCO GIVEN FOR PAIN, PRN ATIVAN GIVEN FOR ANXIETY, WILL CONTINUE TO MONITOR PT
--- NOTE | 2020-03-21 19:29 | NUR ---
PT AT NURSES DESK DUE TO RESTLESSNESS AND TRYING TO STAND UP WITHOUT ASSISTANCE. DENIES NEEDS AT THIS TIME. CALM AND COORAPERATIVE AT THIS TIME. WCGUY
--- NOTE | 2020-03-21 22:37 | NUR ---
I have reviewed this patient and I concur with the Shift Assessment completed by the Licensed Practical Nurse today this shift.
--- NOTE | 2020-03-22 03:33 | NUR ---
PT LYING IN BED ON LEFT SIDE EYES CLOSED RESTING. RR EVEN AND UNLABORED. CALL LIGHT WITHIN REACH. BED ALARM ON. CPOC
--- NOTE | 2020-03-22 07:23 | NUR ---
RESTING WO DISTRESS. BED ALARM ON. CL IN REACH.
[2020-03-22 08:00] VITALS: BP 146/43
--- NOTE | 2020-03-22 10:12 | NUR ---
REPOSITIONED UP IN BED. NO DISTRESS NOTED. CL IN REACH.
--- NOTE | 2020-03-22 12:15 | NUR ---
SPOKE WITH DAUGHTER ABOUT HOSPICE AND CONFIRMED SHE DID WANT PT TO GO BACK ON HOSPICE CARE. DTR STATED SHE HAD BEEN TALKING TO LEOPOLDO REYES, [employer], AND PLANNING WAS ALREADY UNDERWAY. LEOPOLDO IS OFF TODAY BUT HOSPICE NEED WAS ADDRESSED AND WILL LEAVE NOTE FOR LEOPOLDO.
--- NOTE | 2020-03-22 13:28 | NUR ---
Nutrition Follow-up: Diet: Regular [facility] Soft, thin liquids + Ensure with meals PO intake: ~26% average x last 9 meals; spoke with family and OT who was working with patient at meal time. States that patient has been eating good. She struggles to eat breads and fruits 2/2 not having any teeth. She is drinking Ensure. She would like chocolate ice cream with her dinner trays. Last BM: 03/22/20. WT: 117# (03/15/20) Meds noted: remeron. Labs noted: Na 147(H), BUN 42(H) Recommend continue current diet. Continue oral nutrition supplements. Will update diet preferences in orders. Continue encouraged feeding at meals. Encourage fluid intake to prevent dehydration. RD following.
--- NOTE | 2020-03-22 16:26 | NUR ---
NO CHANGE IN ASSESSMENT. FAMILY IN ROOM.
--- NOTE | 2020-03-22 17:03 | NUR ---
PATIENT FOUND IN FLOOR. BED ALARM WAS ON. DR BOWDEN NOTIFIED. R ARM/WRIST XRAY ORDERED. ASSISTED TO BED VSS. FAMILY NOTIFIED.
--- NOTE | 2020-03-22 17:25 | NUR ---
PAIN MED GIVEN. XR DONE R ARM/WRIST. FAMILY AT BS.
--- NOTE | 2020-03-22 18:56 | NUR ---
CALLED DR BOWDEN TO REPORT R ARM XR. AWAITING RETURN CALL.
--- NOTE | 2020-03-22 20:40 | NUR ---
PT RESTING IN BED CRYING IN PAIN AND HOLDING HER WRIST. DR BOWDEN NOTIFIED. NORCO CHANGED TO Q4 HRS AND GIVE A DOSE NOW. PT MEDICATED PER DEC. DAUGHTER IS AT BEDSIDE.
[2020-03-22 21:26] VITALS: BP 143/59
--- NOTE | 2020-03-22 22:30 | NUR ---
NEW ORDER RECIEVED TO CONSULT ORTHO IN AM.
--- NOTE | 2020-03-23 01:47 | NUR ---
I have reviewed this patient and I concur with the Shift Assessment completed by the Licensed Practical Nurse today this shift.
--- NOTE | 2020-03-23 04:37 | NUR ---
RESTING IN BED WITH EYES CLOSED.
--- NOTE | 2020-03-23 07:22 | NUR ---
RESTING. RESP EVEN AND UNLABORED. BED ALARM ON. CL IN REACH.
[2020-03-23 08:00] VITALS: BP 118/54
[2020-03-23 09:22] VITALS: Ht 154.9 cm; Wt 53.1 kg
--- NOTE | 2020-03-23 13:49 | NUR ---
NO CHANGE IN ASSESSMENT. FAMILY AT BS.
--- NOTE | 2020-03-23 16:27 | NUR ---
NO CHANGE IN ASSESSMENT.FAMILY AT BS. RESTING. HAS BRACE TO R ARM.
--- NOTE | 2020-03-23 19:15 | NUR ---
PT RESTING WITH EYES CLOSED. RESPIRATIONS SHALLOW, EVEN AND UNLABORED. VSS. SHE IS DROWSY. SHE AROUSES TO VERBAL STIMULI FOR A FEW SECONDS THEN FALLS ASLEEP. HER DAUGHTER IS AT BEDSIDE. SHE WANTS TO WAIT UNTIL PT WAKES UP MORE BEFORE GIVING HER NIGHTIME MEDICATIONS. HER BED IS LOW AND CALL LIGHT IS WITHIN REACH. HER LINENS ARE CLEAN AND DRY.
[2020-03-23 21:18] VITALS: BP 168/47
--- NOTE | 2020-03-24 | NUR ---
PT INCONTINENT OF URINE. LINENS CHANGED AND JENACARLOS CARE/CLEANING DONE.
--- NOTE | 2020-03-24 05:45 | NUR ---
LINENS WET WITH URINE. LINENS CHANGED AND JEANCARLOS AREA CLEANED.
[2020-03-24 08:00] VITALS: BP 160/64
--- NOTE | 2020-03-24 08:00 | NUR ---
SHIFT ASSMT COMPLETED.DAUGHTER AT BEDSIDE.
--- NOTE | 2020-03-24 12:00 | NUR ---
FED LUNCH.ONLY FEW BITES TAKEN.
--- NOTE | 2020-03-24 16:00 | NUR ---
FINISHED THERAPY.PLACED BACK IN BED.RT WRIST IMMOBILIZER IN PLACE AND ELAVATED UP ON PILLOW.GRANDSON AT BEDSIDE.ALARM IN PLACE.
--- NOTE | 2020-03-24 16:30 | NUR ---
DC'D CYN FROM RIGHT SIDE OF HEAD.INCISION INTACT.
--- NOTE | 2020-03-24 16:46 | NUR ---
REFERRAL FAXED TO [facility] FOR ADMISSION DATE OF 03/25/20. WILL CONTINUE TO FOLLOW WITH PATIENT.
--- NOTE | 2020-03-24 19:15 | NUR ---
PT LYING IN BED RESTING QUIETLY EYES CLOSED. GRANDSON IN ROOM. BED ALARM ON. CL IN REACH. NO DISTRESS NOTED. BED IN LOW SIDE RAILS X3. RESP EVEN AND UNLABORED. WILL CONTINUE TO MONITOR.
[2020-03-24 21:10] VITALS: BP 127/53
--- NOTE | 2020-03-25 00:15 | NUR ---
I have reviewed this patient and I concur with the Shift Assessment completed by the Licensed Practical Nurse today this shift.
[2020-03-25 08:00] VITALS: BP 158/78
--- NOTE | 2020-03-25 12:17 | NUR ---
0700 BEDSIDE REPORT RECEIVED FROM NIGHT NURSE ASSESSMENT COMPLETE PLEASE SEE ASSESSMENT CHARTED
--- NOTE | 2020-03-25 12:18 | NUR ---
1000 SKIN TEAR TO LEFT FOREARM NOTED APPLIED ADAPTIC, 4X4, AND WRAPPED IN SOFT CLING
--- NOTE | 2020-03-25 17:27 | NUR ---
1104 DULCOLOX SUPOSITORY PLACED
--- NOTE | 2020-03-25 17:28 | NUR ---
1145 HARD BALL BM NOTED WHILE SITTING ON THE TOILET
--- NOTE | 2020-03-25 17:29 | NUR ---
1500 AMBULATIING IN LOU WITH PT
--- NOTE | 2020-03-25 17:30 | NUR ---
1700 GRANDSON IN ROOM WITH PATIENT
--- NOTE | 2020-03-25 18:33 | NUR ---
Juni LOUISE FROM INFECTION CONTROL STATING COVID-19 WAS NEGATIVE
--- NOTE | 2020-03-25 19:14 | NUR ---
PT BP ELEVATED AND COMPLAINING OF PAIN IN RIGHT WRIST. NORCO GIVEN AND KLONOPINE. BED IN LOW SIDE RAILS X3. CONFUSED. CL IN REACH. BED ALARM ON. VISITOR IN ROOM AT BEDSIDE. RESP EVEN AND UNLABORED. LUNGS CLEAR. BOWEL ACTIVE X4. WILL CONTINUE TO MONITOR.
[2020-03-25 20:01] VITALS: BP 180/78
--- NOTE | 2020-03-26 00:11 | NUR ---
I have reviewed this patient and I concur with the Shift Assessment completed by the Licensed Practical Nurse today this shift.
--- NOTE | 2020-03-26 01:30 | NUR ---
CHECKED PT. BRIEF DRY NO INCONTINENCE AT THIS TIME. WCTM CL IN REACH. BED ALARM ON
--- NOTE | 2020-03-26 05:11 | NUR ---
PT RESTING QUIETLY. NO DISTRESS NOTED. WCTM
--- NOTE | 2020-03-26 07:27 | NUR ---
PT LAYING SUPINE. RR EVEN AND UNLABORED ON RA. EYES CLOSED. BED IN LOWEST POSITION. NO DISTRESS NOTED. CALL LIGHT WITHIN REACH. WILL CONTINUE TO MONITOR.
[2020-03-26 07:49] VITALS: BP 150/64
[2020-03-26] MEDS ORDERED: HYDROCODON-ACE1 EAC7 PO (08:19)
--- NOTE | 2020-03-26 09:22 | NUR ---
REPORT CALLED TO [facility] CHRIS TO RONALD WOODALL
--- NOTE | 2020-03-26 09:29 | NUR ---
PATIENT DISCHARGING TO [facility] AND WILL ADMITT TO [facility] AT THAT TIME.MARGARITO SIGNED AND IMM SERVED AND EXPLAINED. FAMILY AT BEDSIDE. PATIENT WILL TRANSPORT VIA [facility]. NO COMPARE DATA REVIEWED PATIENT WAS A CLIENT OF [facility] PRIOR TO THIS HOSPITAL VISIT.
--- NOTE | 2020-03-26 12:11 | NUR ---
CALLED AND UPDATED RONALD WOODALL ON PTs DEPARTURE AND THAT SHE DID NOT RECIEVE ANY PAIN MEDICATION PT STATED SHE WAS IN NO PAIN AND WAS SLEEPING UNTIL [place] ARRIVED. PT LEFT VIA WHEELCHAIR. FAMILY AT BEDSIDE AND STATED THEY WOULD DROP OFF HER BELONGINGS AT THE [facility] FOR HER.
== END 2020-03-26 12:15 | disposition hospice, inpatient (51) | DRG 949 ==
LOC: D.REHAB 18:35
PROVIDERS: ADMIT Emergency Medicine; ATTEND Emergency Medicine
DX: S06.5X0D Traumatic subdural hemorrhage without loss of consciousness, subsequent encounter (principal); I26.99 Other pulmonary embolism without acute cor pulmonale; N39.0 Urinary tract infection, site not specified; E46 Unspecified protein-calorie malnutrition; I82.409 Acute embolism and thrombosis of unspecified deep veins of unspecified lower extremity; W19.XXXD Unspecified fall, subsequent encounter; R26.81 Unsteadiness on feet; R53.83 Other fatigue; F03.90 Unspecified dementia, unspecified severity, without behavioral disturbance, psychotic disturbance, mood disturbance, and anxiety; R09.02 Hypoxemia; K21.9 Gastro-esophageal reflux disease without esophagitis; I10 Essential (primary) hypertension; I25.10 Atherosclerotic heart disease of native coronary artery without angina pectoris; R06.03 Acute respiratory distress; S00.93XD Contusion of unspecified part of head, subsequent encounter; R06.02 Shortness of breath; I95.9 Hypotension, unspecified; E16.2 Hypoglycemia, unspecified; E87.70 Fluid overload, unspecified; E86.0 Dehydration; E87.8 Other disorders of electrolyte and fluid balance, not elsewhere classified; R60.9 Edema, unspecified; R53.81 Other malaise; D64.9 Anemia, unspecified; R41.82 Altered mental status, unspecified; R63.4 Abnormal weight loss; F41.8 Other specified anxiety disorders; T81.30XD Disruption of wound, unspecified, subsequent encounter

== ENCOUNTER 2020-03-29 11:46 | Emergency (ER) | payer MEDICARE, BC ==
[~2020-03-29] VITALS: Ht 154.9 cm; Wt 45.5 kg
[2020-03-29 11:49] VITALS: Ht 154.9 cm; Wt 45.5 kg
[2020-03-29 13:57] VITALS: BP 119/59
== END 2020-03-29 14:37 | disposition home or self-care (01) ==
LOC: D.ER 11:46
DX: S52.601A Unspecified fracture of lower end of right ulna, initial encounter for closed fracture (principal); W19.XXXA Unspecified fall, initial encounter; Y93.9 Activity, unspecified; Y92.129 Unspecified place in nursing home as the place of occurrence of the external cause; Z86.73 Personal history of transient ischemic attack (TIA), and cerebral infarction without residual deficits; E07.9 Disorder of thyroid, unspecified; I10 Essential (primary) hypertension; Z95.1 Presence of aortocoronary bypass graft; F03.90 Unspecified dementia, unspecified severity, without behavioral disturbance, psychotic disturbance, mood disturbance, and anxiety; K21.9 Gastro-esophageal reflux disease without esophagitis